=== PATIENT | male | born 1940 | race Caucasian/White ===

== ENCOUNTER → 2016-10-13 | Outpatient (CLI) | payer MEDICARE, OTHER ==
[2015-10-10 10:55] VITALS: BP 132/74
[~2016-10-13] MED LIST: ASPI-482 PO; GLYB5TAB3 PO; INSU100I13 SQ; METF-620 PO; METO50TA2 PO
--- NOTE | 2016-10-13 12:32 | RAD ---
CT of the chest without contrast, 10/13/2016: History: Follow-up lung cancer following radiation therapy. Noncontrast scans were obtained as requested and compared to a study from 04/06/2016. There is an elongated, streaky parenchymal opacity in the anterior aspect of the left upper lobe which has decreased in size since 04/06/2016. It is difficult to precisely measure due to its irregular margins. In the coronal plane it currently measures 8 mm in craniocaudad extent compared to a measurement of 15 mm on the previous study. Much of this process may represent post radiation change/scarring. There is a calcified granuloma in the left lower lobe. No new pulmonary mass or infiltrate is seen. There is no evidence of pleural fluid. There is moderate calcific plaquing of the thoracic aorta and coronary arteries. No mediastinal adenopathy is seen. Again noted is hepatic steatosis. There is a faint radiopacity in the region of the neck of the gallbladder suggesting a calculus. The gallbladder is contracted. There are moderate scattered degenerative changes in the spine. Mild loss of height of several midthoracic vertebral bodies is unchanged. IMPRESSION: 1. The left upper lobe parenchymal opacity has regressed since 04/06/2016, as described above. 2. No new chest abnormality is detected. 3. Coronary artery disease. 4. Hepatic steatosis. 5. Probable cholelithiasis. PQRS Compliance Statement: One or more of the following individualized dose reduction techniques were utilized for this examination: 1. Automated exposure control 2. Adjustment of the mA and/or kV according to patient size 3. Use of iterative reconstruction technique
== END | disposition home or self-care (01) ==
LOC: CT 08:59
PROVIDERS: ATTEND Radiology Radiation Oncology
DX: C34.90 Malignant neoplasm of unspecified part of unspecified bronchus or lung (principal); Z92.3 Personal history of irradiation; I25.10 Atherosclerotic heart disease of native coronary artery without angina pectoris; K76.0 Fatty (change of) liver, not elsewhere classified
CPT/HCPCS: 71250

== ENCOUNTER → 2017-04-11 | Outpatient (CLI) | payer MEDICARE, OTHER ==
[2015-10-10 10:55] VITALS: BP 132/74
--- NOTE | 2017-04-11 13:49 | RAD ---
Indication: 6 month follow-up for lung cancer. Postradiation. Technique: Axial images and coronal and sagittal reformatted images are provided. Most recent comparison is from October 13, 2016. One or more of the following individualized dose reduction techniques were utilized for this examination: 1. Automated exposure control 2. Adjustment of the mA and/or kV according to patient size 3. Use of iterative reconstruction technique Findings: Potential 3 mm nodule near the minor fissure in the right middle lobe is stable. No new or enlarging pulmonary nodule is identified. Calcified granulomas are noted on the left. Bandlike opacity in the left upper lobe appears similar to prior, there is no increasing fullness at this site. There is no pleural effusion. Central airways are patent. There is no definite hilar or mediastinal adenopathy on this noncontrast study. There is atheromatous disease in the thoracic aorta without aneurysm. Coronary artery calcifications are noted. There is fatty infiltration of the liver. There is cholelithiasis. There is no adrenal mass. There are degenerative changes in the spine. Impression: 1. Stable posttreatment changes in the left lung. No increasing masslike consolidation to suggest residual or recurrent tumor. 2. Pulmonary nodule on the right is stable. Finding is retrospectively stable compared to a PET CT from November 18, 2015. 3. Coronary artery calcifications. 4. Cholelithiasis. Continued surveillance of the presumed posttreatment change on the left and a tiny nodule (not considered incidental) on the right is recommended.
== END | disposition home or self-care (01) ==
LOC: CT 10:20
PROVIDERS: ATTEND Radiology Radiation Oncology
DX: I25.10 Atherosclerotic heart disease of native coronary artery without angina pectoris (principal); K80.20 Calculus of gallbladder without cholecystitis without obstruction; R91.1 Solitary pulmonary nodule
CPT/HCPCS: 71250

== ENCOUNTER → 2017-07-25 | Outpatient (CLI) | payer MEDICARE, OTHER | END | disposition home or self-care (01) | LOC: CT 12:30 | DX: C34.92 Malignant neoplasm of unspecified part of left bronchus or lung (principal); J84.10 Pulmonary fibrosis, unspecified; K76.0 Fatty (change of) liver, not elsewhere classified; K80.20 Calculus of gallbladder without cholecystitis without obstruction | CPT/HCPCS: 71250 ==

== ENCOUNTER → 2017-10-27 | Outpatient (CLI) | payer MEDICARE, OTHER | END | disposition home or self-care (01) | LOC: CT 09:35 | DX: K76.0 Fatty (change of) liver, not elsewhere classified (principal); K80.20 Calculus of gallbladder without cholecystitis without obstruction; M81.8 Other osteoporosis without current pathological fracture; I10 Essential (primary) hypertension; E78.00 Pure hypercholesterolemia, unspecified; Z85.118 Personal history of other malignant neoplasm of bronchus and lung | CPT/HCPCS: 71250 ==

== ENCOUNTER → 2018-05-02 | Outpatient (CLI) | payer MEDICARE, OTHER ==
[2015-10-10 10:55] VITALS: BP 132/74
[~2018-05-02] MED LIST changes: +GABA-585 PO; +INSU100C4 SQ; +INSU300I SQ; -METF-620 PO; +METF10007 PO; -METO50TA2 PO; +METO50TA6 PO
--- NOTE | 2018-05-02 13:01 | RAD ---
CT chest without contrast 05/02/2018 Clinical indications: Lung carcinoma status post treatment, follow-up. COMPARISON: CT chest 10/27/2017, 07/25/2017, 04/11/2017, CT chest 09/24/2015. TECHNIQUE: Multiple CT images of the chest were obtained without contrast. *One or more of the following individualized dose reduction techniques were utilized for this examination: 1. Automated exposure control. 2. Adjustment of the mA and/or kV according to patient size. 3. Use of iterative reconstruction technique. FINDINGS: Heart size is normal without significant pericardial effusion. Stable mild dilatation of the ascending thoracic aorta measuring 4.1 cm with mild scattered calcified plaque. Stable dilatation of the main pulmonary artery measuring 3.4 cm. Three-vessel coronary artery calcifications. No axillary, mediastinal or obvious hilar lymphadenopathy, though evaluation is limited in the absence of intravenous contrast. Stable linear fibrosis in the anterior left upper lobe. There is a calcified granuloma in the left lower lobe. No suspicious noncalcified pulmonary nodules. There is stable elevation of the right hemidiaphragm. There is stable mild chronic compression deformities at T3, T6, T7 and T9. Stable ununited anterior left rib fracture, likely post therapeutic. Limited images of the upper abdomen: Moderate hepatic steatosis. Cholelithiasis. Stable right renal sinus cyst or extrarenal pelvis. IMPRESSION: 1. Stable post therapeutic changes of the left upper lung without evidence of local recurrence or thoracic metastatic disease. 2. Cholelithiasis and moderate hepatic steatosis. Electronically signed by: Jermaine Williamson MD (05/02/2018 12:57 PM) [id number]
== END | disposition home or self-care (01) ==
LOC: CT 09:44
PROVIDERS: ATTEND Radiology Radiation Oncology
DX: S22.32XD Fracture of one rib, left side, subsequent encounter for fracture with routine healing (principal); I25.10 Atherosclerotic heart disease of native coronary artery without angina pectoris; J84.10 Pulmonary fibrosis, unspecified; K80.20 Calculus of gallbladder without cholecystitis without obstruction; K76.0 Fatty (change of) liver, not elsewhere classified; M43.8X4 Other specified deforming dorsopathies, thoracic region; J98.6 Disorders of diaphragm; I70.0 Atherosclerosis of aorta; Z85.118 Personal history of other malignant neoplasm of bronchus and lung; X58.XXXD Exposure to other specified factors, subsequent encounter
CPT/HCPCS: 71250

== ENCOUNTER 2018-07-10 09:06 | Emergency (ER) | payer MEDICARE, OTHER ==
[~2018-07-10] VITALS: Ht 175.3 cm; Wt 88.5 kg
--- NOTE | 2018-07-10 10:12 | PHYS DOC ---
Past Medical History Past Medical History: Diabetes-Type II, Hypertension Additional Past Medical Histor: BPH, Lung cancer Past Surgical History: Other Additional Past Surgical Histo: shoulder and leg Alcohol Use: Occasionally Drug Use: None Adult General Chief Complaint Chief Complaint: MECHANICAL FALL HPI HPI Patient is an 78-year-old male who presents with complaining of pain around his left tailbone after falling this morning due to slipping on ice. Patient denies any other injuries. Patient also complains of some intermittent wheezing that he experiences with exertion. He states that that symptom has been present for at least a year. He states that he has not followed up with his primary care doctor on this because he feels like if he does his primary care doctor we'll just send him to see another doctor. He denies any chest pain associated with this. He also denies any fever. He rates the pain in his tailbone had about a 6 out of 10. He states the pain is worsened with palpation and movement. Review of Systems Review of Systems Constitutional: Denies fever or chills [] Respiratory: Denies cough or shortness of breath. Complains of intermittent exertional wheezing. [] Cardiovascular: No additional information not addressed in HPI [] Musculoskeletal: Complains of lower back and tailbone pain [] All other systems were reviewed and found to be within normal limits, except as documented in this note. Current Medications Current Medications Current Medications Medications (Trade) Dose Ordered Sig/Dario Start Time Stop Time Status Last Admin Dose Admin Oxycodone/ Acetaminophen (Percocet 7.5/ 325) 1 tab 1X ONCE 07/10/18 10:45 07/10/18 10:46 DC Allergies Allergies Allergies Coded Allergies Type Severity Reaction Last Updated Verified No Known Drug Allergies 06/08/13 No Physical Exam Physical Exam Constitutional: Well developed, well nourished, no acute distress, non-toxic appearance. [] HENT: Normocephalic, atraumatic, bilateral external ears normal, oropharynx moist, no oral exudates, nose normal. [] Eyes: PERRLA, EOMI, conjunctiva normal, no discharge. [] Neck: Normal range of motion, no tenderness, supple, no stridor. [] Cardiovascular: Regular rate and rhythm[] Lungs & Thorax: Bilateral breath sounds clear to auscultation [] Abdomen: Bowel sounds normal, soft, no tenderness. [] Skin: Warm, dry, no erythema, no rash. [] Back: There is tenderness to palpation around the left body of sacrum near the SI joint. There is no spinous point tenderness throughout the thoracic and lumbar spine. [] Extremities: No tenderness, no cyanosis, no clubbing, ROM intact. [] Current Patient Data Vital Signs Vital Signs Date Time Temp Pulse Resp B/P (MAP) Pulse Ox O2 Delivery O2 Flow Rate FiO2 07/10/18 09:42 98.9 82 16 160/76 (104) 95 Room Air 98.9 EKG EKG [] Radiology/Procedures Radiology/Procedures [] Impressions: PROCEDURE: CHEST PA & LATERAL Examination: 2 views of the chest, frontal view of the pelvis, 2 views of the sacrum and coccyx HISTORY: History of fall COMPARISON: None available. FINDINGS: Low lung volumes accentuates heart size and pulmonary vascularity. Mild linear left midlung zone atelectasis. Moderate degenerative changes thoracic spine. The bilateral femoral heads within the acetabula. Moderate joint space loss identified in the bilateral hip joint likely degeneration. Anterolisthesis of L5 on S1 measuring 1.8 cm. Moderate intervertebral disc is identified in the lower lumbar spine. Osseous demineralization limits evaluation. IMPRESSION: 1. No acute cardiopulmonary findings. Minimal atelectasis left midlung zone. 2. Moderate degenerative changes bilateral hip joints. No acute osseous findings. 3. 1.8 cm anterolisthesis of L5 on S1. Electronically signed by: Karson Polanco MD (07/10/2018 10:29 AM) [place] [id number] Course & Med Decision Making Course & Med Decision Making Pertinent Labs and Imaging studies reviewed. (See chart for details) [] Dragon Disclaimer Dragon Disclaimer This electronic medical record was generated, in whole or in part, using a voice recognition dictation system. Departure Departure Impression: Primary Impression: Sacral contusion Disposition: 01 HOME, SELF-CARE Condition: STABLE Referrals: WILLIE ALARCON MD (PCP) Patient Instructions: Contusion Scripts Methocarbamol (ROBAXIN-750) 750 Mg Tablet 1 TAB PO TID PRN for MUSCLE SPASMS, #15 TAB Prov: MADELINE IRELAND Jr. DO 07/10/18 Hydrocodone/Apap 5-325 (NORCO 5-325 TABLET) 1 Each Tablet 1-2 EACH PO PRN Q6HRS PRN for PAIN, #15 as needed for pain Prov: MADELINE IRELAND Jr. DO 07/10/18 Problem Qualifiers Primary Impression: Sacral contusion Encounter type: initial encounter Qualified Codes: S30.0XXA - Contusion of lower back and pelvis, initial encounter MADELINE IRELAND Jr. DO Jul 10, 2018 10:12
[2018-07-10 10:30] VITALS: BP 143/66
--- NOTE | 2018-07-10 10:33 | RAD ---
Examination: 2 views of the chest, frontal view of the pelvis, 2 views of the sacrum and coccyx HISTORY: History of fall COMPARISON: None available. FINDINGS: Low lung volumes accentuates heart size and pulmonary vascularity. Mild linear left midlung zone atelectasis. Moderate degenerative changes thoracic spine. The bilateral femoral heads within the acetabula. Moderate joint space loss identified in the bilateral hip joint likely degeneration. Anterolisthesis of L5 on S1 measuring 1.8 cm. Moderate intervertebral disc is identified in the lower lumbar spine. Osseous demineralization limits evaluation. IMPRESSION: 1. No acute cardiopulmonary findings. Minimal atelectasis left midlung zone. 2. Moderate degenerative changes bilateral hip joints. No acute osseous findings. 3. 1.8 cm anterolisthesis of L5 on S1. Electronically signed by: Karson Polanco MD (07/10/2018 10:29 AM) [facility]
[2018-07-10] MEDS ORDERED: METH-38 PO (10:53)
[2018-07-10] MEDS ORDERED: HYDR-3164 PO (10:53)
[2018-07-10] MEDS: oxyCODONE/APAP 7.5/325 1 TAB TABLET PO ONE (10:54)
== END 2018-07-10 11:23 | disposition home or self-care (01) ==
LOC: ER 09:06
DX: S30.0XXA Contusion of lower back and pelvis, initial encounter (principal); I10 Essential (primary) hypertension; E11.9 Type 2 diabetes mellitus without complications; W00.2XXA Other fall from one level to another due to ice and snow, initial encounter; Y93.89 Activity, other specified; Y92.89 Other specified places as the place of occurrence of the external cause; Y99.8 Other external cause status
CPT/HCPCS: 71046; 72170; 72220; 99283

== ENCOUNTER → 2018-12-05 | Outpatient (CLI) | payer MEDICARE, OTHER ==
[~2018-12-05] MED LIST changes: +HYDR-3164 PO; +METH-38 PO
--- NOTE | 2018-12-05 11:28 | KCIC ---
MRI Lumbar Spine without contrast History: Chronic low back pain, lumbar radiculitis, bilateral lower extremity weakness and gait disturbance Technique: Multiplanar, multi sequential noncontrast MR imaging was performed of the lumbar spine. Comparison: None Findings: There is severe L1 compression deformity, some mild edema signified by STIR hyperintense signal and T1 hypointense signal at site of maximal height loss centrally and to a lesser degree anteriorly. There is osseous retropulsion of the mid to superior vertebral body level with mild indentation upon the ventral thecal sac. Vertebral body stature levels is maintained. There is grade 1 anterior spondylolisthesis L5-S1 about 9 mm, bilateral L5 spondylolysis. There is moderate to severe degenerative disc disease greater posteriorly at L5-S1, mild disc desiccation more superior levels. Conus terminates near L1. There are anterior and posterior annular tears at L2-3 and L3-4. There are fairly large T2 hyperintense foci of the bilateral kidneys more likely due to cysts. There is circumaortic left renal vein. T12-L1: At the intervertebral disc space level, spinal canal is adequate. Neural foramina are adequate. There is mild osseous retropulsion of the superior aspect of L1 slightly indenting the ventral thecal sac without significant spinal stenosis. L1-L2: Spinal canal is adequate. There is minimal buckling of the ligamentum flavum. There is mild narrowing of the left neural foramen by facet, [id number] narrowing on the right in part mild osseous retropulsion. L2-L3: There is negligible disc osteophyte complex and bulge. Spinal canal and neural foramina are adequate. There is minimal buckling of the ligamentum flavum. L3-L4: There is negligible bulge. There is minimal buckling of the ligamentum flavum. Spinal canal and neural foramina are adequate. L4-L5: Spinal canal and neural foramina are adequate. L5-S1: There is partial uncovering of the posterior aspect of the disc due to spondylolisthesis, also minimal disc osteophyte complex. Spinal canal is adequate. There is mild neural foramina compromise bilaterally. Impression: 1. There is severe L1 compression fracture, trace edema at site of maximal height loss and to a lesser degree anteriorly, probably subacute. There is osseous retropulsion of the mid to superior vertebral body without significant spinal stenosis. There is [id number] right and mild left L1-2 neural foramina compromise. 2. There is grade 1 anterior spondylolisthesis L5-S1 due to bilateral L5 spondylolysis. There is mild bilateral L5-S1 neural foramina compromise. 3. Not fully evaluated, T2 hyperintense foci of the bilateral kidneys are more likely due to cysts. Electronically signed by: Jose Yanez MD (12/05/2018 11:25 AM) [facility]
--- NOTE | 2018-12-05 11:33 | KCIC ---
Bilateral lower extremity arterial ultrasound History: Absent pedal pulses. Discoloration and edema of the feet. Findings: Multiple grayscale, color, and duplex spectral analysis sonographic images were acquired of the lower extremity arteries bilaterally. There are no previous similar exams. Biphasic waveforms bilaterally are seen throughout arterial vasculature detected to have flow on color Doppler imaging. Diffuse plaque identified involving the arterial vasculature bilaterally. Velocities in cm/sec: RIGHT Common femoral artery 79 Profunda femoris artery 70 Proximal SFA 72 Mid SFA 51.4 Distal SFA 40.7 Popliteal artery 31.5 Anterior tibial artery no flow identified. Collaterals are seen. Dorsalis pedis artery no flow identified. Posterior tibial artery 46.6 proximally but the mid to distal aspects are occluded. Peroneal artery 88 LEFT: Common femoral artery 88.7 Profunda femoris artery 58.5 Proximal SFA 69.4 Mid SFA 71.3 Distal SFA 76.5 Popliteal artery 29.2 Anterior tibial artery no flow identified Dorsalis pedis artery no flow identified Posterior tibial artery 57.8 proximally but 18.5 distally Peroneal artery 236 Impression: Absence of flow involving the anterior tibial artery and dorsalis pedis artery bilaterally of concern for occlusion. The right posterior tibial artery also does not have flow at the mid to distal aspect of concern for occlusion. High velocity of the left peroneal artery compatible with hemodynamically significant stenosis. Diminished flow in the left distal posterior tibial artery. Electronically signed by: Dani Garcia MD (12/05/2018 11:30 AM) [facility]
== END | disposition home or self-care (01) ==
LOC: KCIC US 09:35
PROVIDERS: ATTEND Physical Medicine & Rehabilitation
DX: M51.17 Intervertebral disc disorders with radiculopathy, lumbosacral region (principal); M43.17 Spondylolisthesis, lumbosacral region; M47.27 Other spondylosis with radiculopathy, lumbosacral region; M25.78 Osteophyte, vertebrae; M48.061 Spinal stenosis, lumbar region without neurogenic claudication; M43.8X6 Other specified deforming dorsopathies, lumbar region; I70.203 Unspecified atherosclerosis of native arteries of extremities, bilateral legs; G89.29 Other chronic pain
CPT/HCPCS: 72148; 93925

== ENCOUNTER 2018-12-21 08:27 | Outpatient (CLI) | payer MEDICARE, OTHER ==
[~2018-12-21] VITALS: Ht 175.3 cm; Wt 90.3 kg
[2018-12-21] VITALS (13 sets, daily range): BP systolic 97–173; BP diastolic 54–101
[2018-12-21] MEDS ORDERED: LIDOCAINE WITH 8.4% SOD BICARB 3 ML DISP.SYRIN. ONE ×2 (08:54→10:50)
[2018-12-21] MEDS ORDERED: IOHEXOL 240 MG/ML 50ML VIAL. ONE (08:54)
[2018-12-21] MEDS ORDERED: GLIM4TAB2 PO (09:00)
[2018-12-21] MEDS ORDERED: TAMS0.4C97 PO (09:00)
[2018-12-21] MEDS ORDERED: METF500T9 PO (09:00)
[2018-12-21 09:03] LABS: BASO # 0.1 x10^3/uL (0.0-0.2); BASO % 1 % (0-3); EOS # 0.1 x10^3/uL (0.0-0.7); EOS % 2 % (0-3); HEMATOCRIT 45.6 % (39.0-53.0); HEMOGLOBIN 15.6 g/dL (13.0-17.5); LYMPH # 1.5 x10^3/uL (1.0-4.8); LYMPH % 23 % (24-48); MEAN CORPUSCULAR HEMOGLOBIN 33 pg (25-35); MEAN CORPUSCULAR HGB CONC 34 g/dL (31-37); MEAN CORPUSCULAR VOLUME 97 fL (79-100); MONO # 0.6 x10^3/uL (0.0-1.1); MONO % 10 % (0-9); NEUT # 4.2 x10^3/uL (1.8-7.7); NEUT % 65 % (31-73); PLATELET COUNT 267 x10^3/uL (140-400); RED BLOOD COUNT 4.68 x10^6/uL (4.30-5.70); RED CELL DISTRIBUTION WIDTH 13.8 % (11.5-14.5); WHITE BLOOD COUNT 6.4 x10^3/uL (4.0-11.0)
[2018-12-21 09:19] LABS: PROTHROMBIN TIME PATIENT 12.8 SEC (11.7-14.0)
[2018-12-21] MEDS ORDERED: fentaNYL PF VIAL 100 MCG/2 ML VIAL ONE (09:55)
[2018-12-21] MEDS ORDERED: MIDAZOLAM HCL/PF 2 MG/2 ML VIAL. ONE (09:55)
[2018-12-21] MEDS ORDERED: MIDAZOLAM HCL/PF 2 MG/2 ML VIAL. IV ONE (10:45)
[2018-12-21] MEDS ORDERED: LIDOCAINE WITH 8.4% SOD BICARB 3 ML DISP.SYRIN. IJ ONE (10:45)
[2018-12-21] MEDS ORDERED: fentaNYL PF VIAL 100 MCG/2 ML VIAL IV ONE (10:45)
[2018-12-21] MEDS ORDERED: IOHEXOL 240 MG/ML 50ML VIAL. IJ ONE (10:45)
[2018-12-21] MEDS ORDERED: IV NORMAL SALINE 500ML BAG 250 ML IV ONE (13:00)
--- NOTE | 2018-12-21 14:47 | NUR ---
Discharge Note: ARNOL BARILLAS Discharge instructions and discharge home medications reviewed with Patient and a copy given. All questions have been answered and understanding verbalized. The following instructions and handouts were given: moderate sedation adult and vertebroplasty after care Discontinued lines and drains: Peripheral IV intact. Patient discharged to Home or Self Care withFamily Membervia Wheelchair Addendum: 12/21/18 at 1450 by JIM VANEAGS RN Patient was instructed to contact Dr. Mondragon's office for additional pain medications.
--- NOTE | 2018-12-22 10:21 | RAD ---
Fluoroscopically guided kyphoplasty Indication:L1 compression fracture Fluoro time: 14.8 minutes Dose area product: 6138.9 uGym2 G Moderate sedation: The patient was appropriately monitored by a qualified independent observer throughout the course of the moderate sedation. [id number] sedation time:47 Consent: The risks and benefits of the procedure were discussed with the patient. Informed consent was obtained. The patient was brought to the fluoroscopy suite and placed in the prone position. A timeout procedure was performed. Preprocedural antibiotics were administered. Procedure: The overlying skin was prepped and draped in the usual sterile fashion. All elements of maximal sterile barrier technique including the use of a cap, mask, sterile gown, sterile gloves, large sterile sheet, appropriate hand hygiene, and 2% chlorhexidine for cutaneous antisepsis (or acceptable alternative antiseptic per current guidelines) were followed for this procedure. Using a left transpedicular approach, and direct fluoroscopic guidance, a trocar needle was advanced to the posterior third of the targeted vertebral body. Attempts to advance a curved cement delivery needle into the appropriate contralateral vertebral body were unsuccessful due to sclerosis and vertebral morphology. Right transpedicular access was achieved in identical fashion. Contrast opacified polymethylmethacrylate was then very slowly and carefully introduced through a cement delivery cannula through both access needles, under strict fluoroscopic control. Only a small amount of cement could be instilled, given morphology. The needles were removed and manual pressure was held. No significant extravasation or complication was identified. Sterile dressing was applied. Patient tolerated the procedure well, without apparent complication. Impression: L1 vertebroplasty
== END 2018-12-21 14:35 | disposition home or self-care (01) ==
LOC: INTRAD 08:27
PROVIDERS: ATTEND Physical Medicine & Rehabilitation
DX: M48.56XA Collapsed vertebra, not elsewhere classified, lumbar region, initial encounter for fracture (principal); M54.5 Low back pain; Z79.01 Long term (current) use of anticoagulants; Z79.899 Other long term (current) drug therapy
CPT/HCPCS: 22514; 36415; 82962; 85025; 85610; 85730; 99152; 99153; C1713; C1725; J0696; J2250; J3010; J7040; 22511

== ENCOUNTER → 2019-06-05 | Outpatient (CLI) | payer MEDICARE, OTHER ==
[2018-12-21 14:25] VITALS: BP 154/101
[~2019-06-05] MED LIST changes: +GLIM4TAB8 PO; +IOHEXOL 180 MG/ML 10 ML VIAL. ONE; +METF500T11 PO; +TAMS0.4C97 PO; +methylPREDNISolone ACETATE 40 MG/ML VIAL. ONE; +methylPREDNISolone ACETATE 80 MG/ML VIAL. ONE
--- NOTE | 2019-06-05 14:06 | PAIN ---
DATE OF SERVICE: 06/05/2019 INITIAL CONSULTATION FOR PAIN CLINIC CHIEF COMPLAINT: Low back pain. HISTORY OF PRESENT ILLNESS: This is an 78-year-old male who presents with history of pain in the low back after falling on some ice on 07/07/2018. The patient reports he had significant pain in the mid low back at that time. He did have some x-rays done at that time showing a compression fracture at L1. He had a vertebroplasty performed after that, but with only minimal decrease in pain. The patient reports that since this past summer, the pain is becoming more noticeable in the mid upper back and the mid lower back, constant, throbbing, aching, sharp without any specific radiation. The patient has not done any current physical therapies or rehab with the back. He is doing some stretching on his own, he reports. The patient did have an MRI scan report with him dated 12/05/2018. Lumbar spine showing severe L1 compression fracture with trace edema at the site of the maximal height loss and a lesser degree anteriorly, probably subacute with osseous retropulsion of the mid to superior vertebral body without significant spinal stenosis with [id number] right and mild left L1-L2 neural foraminal compromise as well as a grade 1 anterior spondylolisthesis L5-S1 due to bilateral L5 spondylosis, mild bilateral L5-S1 neural foraminal compromise as well. The patient reports the pain disability rating from 0-10, 10 being the worst, is an 8 with family home responsibilities, recreation, social activity, occupation and sexual behavior, self-care and life support activities. The patient reports no loss of motor function in the lower extremities, significant pain interrupting his sleep at least twice a night, does not affect his bowel or bladder control, but does affect his ability to walk. The patient also has some dizziness and balance issues, he reports separate from the pain in the back. PAST MEDICAL HISTORY: Significant for hearing aids with hearing loss, diabetes insulin dependent, shortness of breath, hypertension, irregular heart rhythm, history of lung cancer in 2016, treated with chemotherapy, difficulty urinating, dizziness, low back pain. PREVIOUS SURGERIES: Include fracture of left wrist repair, left knee ACL repair. CURRENT MEDICATIONS: Include hydrocodone, tamsulosin, metformin, glimepiride, metoprolol, insulin, and gabapentin. ALLERGIES: The patient has no known drug allergies. FAMILY HISTORY: Significant for no major medical problems or conditions that he lists. SOCIAL HISTORY: The patient does not drink alcohol, does not smoke, does not use any illegal, illicit or recreational drugs. He is and lives locally in [place], [place]. The patient is accompanied by his daughter today who helps as a caregiver. REVIEW OF SYSTEMS: The patient's review of systems is positive for those items mentioned in history of present illness. All systems reviewed and otherwise negative. It is complete, full and well documented on the patient's chart. PHYSICAL EXAMINATION: VITAL SIGNS: The patient's blood pressure is 156/83, pulse rate is 63, respirations 18, temperature 98.5 degrees Fahrenheit, height 5 feet 9 inches, weight is 196 pounds. GENERAL: The patient is awake, alert, oriented, appropriate, very pleasant demeanor. HEENT: Shows normocephalic, atraumatic. Extraocular movements are intact and symmetrical. Oral cavity shows mucous membranes moist and pink. Dentition is intact. NECK: Shows anterior throat supple without palpable lymphadenopathy noted. Swallow reflex is symmetrical. CHEST: Shows normal on inspection. Breath sounds are clear bilaterally. HEART: Shows S1, S2 clear. No murmurs auscultated. ABDOMEN: Soft, nontender, nondistended. No palpable organomegaly is noted. No rebound or guarding demonstrated. BACK: The patient's back shows spine grossly in midline, slightly exaggerated thoracic kyphosis, some minor flattening of cervical lordotic curvature and lumbar lordotic curvature. Lumbar paraspinous muscle shows symmetrical on inspection, on palpation shows some gurv-ut-[id number] tenderness in the superior aspect of the lumbar paraspinous musculature bilaterally going diffusely, some moderate tenderness with palpation deeply over the spinous processes of the lower thoracic and upper lumbar distribution, but without specific radiation and only moderately painful. Lower lumbar paraspinous musculature shows no significant pain, no tenderness over the spinous processes, sacrum or sacroiliac regions. The patient shows good rotational motion of lumbar spine, both laterally greater than 10 degrees right and left as well as extension greater than 10 degrees, forward flexion 45 degrees without significant increase in pain. EXTREMITIES: The patient's lower extremities show deep tendon reflexes 1+ in the patellar and tendo-calcaneus tendons are equal. Motor exam is with approximately 3-4 on a scale of 5 with left dorsiflexion and extension and 5/5 on the right, quadriceps and hamstring flexion is 4/5 left, 5/5 on the right. The patient is able to stand, has difficulty trying to get up out of the chair without using arms, but is walking without any assistive devices. No canes or walkers with him today. The patient reports he does have a cane at home, but is not using it currently. He walks with a significant antalgic gait and favors the left lower extremity significantly with significant footdrop and slapping of the left foot with ambulation. The patient's skin shows warm and dry, good turgor. No edema. No sores or bruising throughout. IMPRESSION: 1. This is an 78-year-old male with approximate 1-year history of fall with compression fracture L1, status post vertebroplasty, still with significant low back pain. 2. Hypertension. 3. Diabetes. 4. History of lung cancer. PLAN: Options were discussed with the patient, the patient's daughter who accompanied him on this visit today including conservative medical managements, physical therapies and interventional techniques and they would like to pursue interventional techniques. We discussed a lumbar epidural steroid injection using description as well as anatomical models to describe the procedure. Risks were then discussed including, but not limited to bleeding, infection, possibility of epidural hematoma, subsequent neurological compromise, dural puncture headaches, spinal cord and/or nerve damage, side effects of steroid medication and poor results regarding pain control. The patient understands and wished to proceed. The patient will return to the clinic in approximately 2 weeks for followup. She was counseled as to return appointment, activity level and side effects to be aware of. DIAGNOSIS: Lumbar compression fracture with low back pain. PROCEDURE: Lumbar epidural steroid injection, translaminar approach at L1-L2 level using C-arm fluoroscopic guidance under sterile prep and drape using local anesthetic. MEDICATION INJECTED: A total of 120 mg of Depo-Medrol plus 10 mL of preservative-free normal saline and 2 mL of contrast. CONDITION AT DISCHARGE: Stable. The patient tolerated the procedure well, had no complications. JEN BUSTILLOS MD DR: BEVERLY/dustin JOB#: [id number] / [id number] WILLIE Mckeon MD
== END ==
LOC: PNCL 11:20
PROVIDERS: ATTEND Anesthesiology
DX: M54.5 Low back pain (principal); M48.56XA Collapsed vertebra, not elsewhere classified, lumbar region, initial encounter for fracture; I10 Essential (primary) hypertension; E11.9 Type 2 diabetes mellitus without complications; Z79.84 Long term (current) use of oral hypoglycemic drugs; Z85.118 Personal history of other malignant neoplasm of bronchus and lung
CPT/HCPCS: 62323; J1030; J1040; Q9965

== ENCOUNTER → 2019-06-08 | Outpatient (CLI) | payer MEDICARE, OTHER ==
[2018-12-21 14:25] VITALS: BP 154/101
[~2019-06-08] MED LIST changes: +GADOTERATE 7.5 MMOL/15ML VIAL. IVP ONE; -IOHEXOL 180 MG/ML 10 ML VIAL. ONE; -methylPREDNISolone ACETATE 40 MG/ML VIAL. ONE; -methylPREDNISolone ACETATE 80 MG/ML VIAL. ONE
--- NOTE | 2019-06-08 13:23 | KCIC ---
MRI Cervical Spine with and without contrast History: Cervical radiculopathy, previous lung cancer, neck pain, crepitus, loss of range of motion, shoulder pain Technique: Multiplanar, multi sequential pre and postcontrast MR imaging was performed of the cervical spine. Comparison: None Findings: There is motion degradation. Not included on the axial images, there is approximate 1.1 cm AP focus of abnormal T2 and STIR hyperintense signal near the base of the dens, also with associated likely underlying type II nondisplaced fracture signified by linear decreased T1 and T2 signal. There is some degree of associated mild enhancement although no bony expansion. Vertebral body stature is overall maintained. There is minimal grade 1 anterior spondylolisthesis at C3-C4, C6-7, C7-T1. There is fairly advanced degenerative disc disease at C6-7 and to lesser degree at C4-5 and C5-6. Cervical cord caliber is within normal limits without defined or expansile signal abnormality. There is no enhancement of the cervical cord. There is mild levoscoliosis centered upon the cervicothoracic junction. C2-C3: Spinal canal and neural foramina are are overall adequate. C3-C4: There is facet degenerative change change greater on the right. Spinal canal is adequate. There is negligible disc osteophyte complex. There is degree of left uncovertebral degenerative change. Neural foramina are poorly characterized due to motion, right neural foramen probably adequate and likely vfws-na-[id number] narrowing of the left neural foramen. C4-C5: There is buckling of the ligamentum flavum. There is disc osteophyte complex and approximate 2 to 3 mm AP bulge, central canal borderline about 10 mm. There is mild facet degenerative change, also right uncovertebral degenerative change. Neural foramina are poorly characterized due to motion, probable moderate to severe right and possible mild left neural foramina compromise. C5-C6: There is disc osteophyte complex and superimposed about 2 mm AP bulge. Central canal is adequate about 11 mm. There is likely mild uncovertebral degenerative change. Neural foramina are poorly characterized due to motion, likely wlwy-cf-[id number] left and at least mild right neural foramina compromise C6-C7: There is disc osteophyte complex and partially calcified, about 3 mm AP protrusion. Central canal is adequate about 13 mm. Neural foramina are adequate. C7-T1: Spinal canal and neural foramina are adequate. Impression: 1. There is abnormal edema and also apparently nondisplaced type II odontoid fracture, associated mild enhancement which could be due to underlying marrow replacing lesion although no bony expansion and enhancement could be reactive. 2. There is no significant cervical spinal stenosis. 3. Neural foramina are poorly characterized due to motion motion, suspected neural foramina compromise as stated greatest on the right at C4-C5, to a lesser degree left greater than right at C5-C6 and on the left at C3-4 and C4-5. 3. There is multilevel cervical degenerative disc disease greatest at C6-7 and to a somewhat lesser degree at C4-5 and C5-6, also spondylosis at these levels. Critical results were discussed with nurse Ordaz in the office of Dr. Coy at 06/08/2019 1:16 PM. Electronically signed by: Jose Yanez MD (06/08/2019 1:20 PM) [facility]
== END | disposition home or self-care (01) ==
LOC: KCIC MRI 11:22
PROVIDERS: ATTEND Neurological Surgery
DX: S12.112A Nondisplaced Type II dens fracture, initial encounter for closed fracture (principal); M50.121 Cervical disc disorder at C4-C5 level with radiculopathy; M47.22 Other spondylosis with radiculopathy, cervical region; M43.13 Spondylolisthesis, cervicothoracic region; X58.XXXA Exposure to other specified factors, initial encounter; Y93.89 Activity, other specified; Y92.89 Other specified places as the place of occurrence of the external cause; Y99.8 Other external cause status
CPT/HCPCS: 72156; 82565; A9575

== ENCOUNTER → 2019-06-19 | Outpatient (CLI) | payer MEDICARE, OTHER ==
[2018-12-21 14:25] VITALS: BP 154/101
[~2019-06-19] MED LIST changes: -GADOTERATE 7.5 MMOL/15ML VIAL. IVP ONE
--- NOTE | 2019-06-19 18:07 | RAD ---
Examination: CT CERVICAL SPINE WO CONTRAST History: C2 fracture Comparison/Correlation: 06/08/2019 MRI cervical spine without with contrast Findings: Axial images of cervical spine were obtained without contrast. Sagittal and coronal reformatted images were provided. Atlantoaxial joint degenerative remodeling is present. Cystic appearance of the base of the dens is noted. No cortical disruption identified. No soft tissue swelling in the prevertebral region at this level. Moderate C4-5 disc space narrowing. Moderate C5-6 disc space narrowing. C5 and C6-7 disc space narrowing. Bony encroachment bilaterally as noted the neural foramina at these levels greater on the right. Significant narrowing of the right C4-5, C5-6 and to lesser extent C6-7 neural foramina on the right noted. C6-7 disc osteophyte complex noted. Alignment is normal. Vertebral body heights are adequate. Impression: No displaced cervical spine fracture. Atlantoaxial joint degenerative remodeling. Multicystic appearance of the base of the odontoid process is present likely related to degenerative change. No cortical disruption or soft tissue edema to suggest acute fracture. Correlate with symptoms in this term follow-up. Alignment is normal. PQRS Compliance Statement: One or more of the following individualized dose reduction techniques were utilized for this examination: 1. Automated exposure control 2. Adjustment of the mA and/or kV according to patient size 3. Use of iterative reconstruction technique Electronically signed by: Dani Garcia MD (06/19/2019 6:03 PM) [facility]
== END | disposition home or self-care (01) ==
LOC: CT 14:01
PROVIDERS: ATTEND Neurological Surgery
DX: S12.101D Unspecified nondisplaced fracture of second cervical vertebra, subsequent encounter for fracture with routine healing (principal); X58.XXXD Exposure to other specified factors, subsequent encounter
CPT/HCPCS: 72125

== ENCOUNTER → 2019-07-16 | Outpatient (CLI) | payer MEDICARE, OTHER ==
[2018-12-21 14:25] VITALS: BP 154/101
[~2019-07-16] MED LIST changes: +IOHEXOL 180 MG/ML 10 ML VIAL. ONE; +methylPREDNISolone ACETATE 40 MG/ML VIAL. ONE; +methylPREDNISolone ACETATE 80 MG/ML VIAL. ONE
--- NOTE | 2019-07-16 23:22 | PAIN ---
DATE OF SERVICE: 07/16/2019 PROGRESS NOTE FOR PAIN CLINIC DIAGNOSES: Lumbar degenerative disk disease, lumbar compression fracture, and low back pain. HISTORY OF PRESENT ILLNESS: The patient is an 79-year-old male who returns for followup status post lumbar epidural steroid injection x 1. The patient reports only minimal decrease in pain in the back and the pain has moved to a lower area of the back in the low back bilaterally and some into the posterior gluteus bilaterally as well, but mostly in the back itself. The patient reports it is a 6 on a scale of 10 at average, least, and worst, and is a 6 on a scale of 10 today. The patient describes it as aching and dull, sometimes shooting, but mostly just dull and aching in the low back, worse with walking, standing, changing positions, better with sitting or lying down, does not awaken him from sleep at night. The patient reports no new motor or sensory deficits, no new bowel or bladder incontinence or other complaints. PHYSICAL EXAMINATION: VITAL SIGNS: The patient's blood pressure is 164/87, pulse is 71, respirations 18, temperature 98.6 degrees Fahrenheit, and weight is 192 pounds. GENERAL: The patient is awake, alert, oriented, appropriate, very pleasant demeanor. HEENT: Shows normocephalic, atraumatic. Extraocular movements are intact and symmetrical. Oral cavity: Mucous membranes moist and pink. Dentition is intact. NECK: Shows anterior throat supple without palpable lymphadenopathy noted. Swallow reflex symmetrical. CHEST: Shows normal on inspection. Breath sounds are clear bilaterally. HEART: Shows S1, S2 clear. No murmurs auscultated. ABDOMEN: Soft, nontender, nondistended. No palpable organomegaly is noted. No rebound or guarding demonstrated. BACK: Shows spine grossly in the midline. Normal-appearing thoracic kyphosis and lumbar lordotic curvature. Lumbar paraspinous muscle shows symmetrical on inspection, with palpation shows some moderate tenderness diffusely bilaterally going diffusely without significant radiation. The patient shows good rotation of motion without significant pain reported with palpation. Lumbar paraspinous muscle shows symmetrical on inspection, but with palpation shows some moderate tenderness inferiorly and superiorly as well throughout the right and left lumbar paraspinous musculature without radiation. EXTREMITIES: The patient's lower extremities show deep tendon reflexes 2+ in the patellar, 1+ tendo-calcaneus tendons. Motor exam is strong with approximately 3-4 on a scale of 5 with left loot, 4/5 quadriceps and hamstring flexion on the left. Options were discussed with the patient. The patient's old chart was reviewed as his current medication regimen updated. Current review of systems updated today as well. We will proceed with a second lumbar epidural steroid injection today with fluoroscopic guidance. Risks were again discussed including, but not limited to bleeding, infection, possibility of epidural hematoma, subsequent neurological compromise, dural puncture, headaches, spinal cord and/or nerve damage, side effects of steroid medication and poor results regarding pain control. The patient understands and wished to proceed. The patient will return to clinic in approximately 2 weeks for followup. He was counseled as to return appointment, activity level and side effects to be aware of. DIAGNOSIS: Lumbar degenerative disk disease with lumbar compression fracture. PROCEDURE: Lumbar epidural steroid injection, translaminar approach L5-S1 level using C-arm fluoroscopic guidance under sterile prep and drape using local anesthetic. MEDICATION INJECTED: A total of 120 mg Depo-Medrol plus 10 mL of preservative-free normal saline and 2 mL of contrast. CONDITION AT DISCHARGE: Stable. The patient tolerated the procedure well, had no complications. JEN BUSTILLOS MD DR: BEVERLY/dustin JOB#: [id number] / [id number]
== END | disposition home or self-care (01) ==
LOC: PNCL 14:04
PROVIDERS: ATTEND Anesthesiology
DX: M51.36 Other intervertebral disc degeneration, lumbar region (principal); S32.009A Unspecified fracture of unspecified lumbar vertebra, initial encounter for closed fracture; X58.XXXA Exposure to other specified factors, initial encounter; Y93.89 Activity, other specified; Y92.89 Other specified places as the place of occurrence of the external cause; Y99.8 Other external cause status; Z98.890 Other specified postprocedural states
CPT/HCPCS: 62323; J1030; J1040; Q9965

== ENCOUNTER 2020-06-01 16:03 | Inpatient (IN) | payer MEDICARE, OTHER ==
[~2020-06-01] VITALS: Ht 175.3 cm; Wt 83.4 kg
[~2020-06-01 16:03] MED LIST changes: +ASPI-886 PO; +ATOR40TA59 PO; +GABA600T7 PO; +INSU100I17 SQ; -IOHEXOL 180 MG/ML 10 ML VIAL. ONE; +ISOS30TA68 PO; +METF-658 PO; -METF500T11 PO; +PANT40TA77 PO; -methylPREDNISolone ACETATE 40 MG/ML VIAL. ONE; -methylPREDNISolone ACETATE 80 MG/ML VIAL. ONE
[2020-06-01 16:19] LABS: BASO # 0.1 x10^3/uL (0.0-0.2); BASO % 1 % (0-3); EOS # 0.2 x10^3/uL (0.0-0.7); EOS % 2 % (0-3); HEMATOCRIT 40.5 % (39.0-53.0); HEMOGLOBIN 13.5 g/dL (13.0-17.5); LYMPH # 2.1 x10^3/uL (1.0-4.8); LYMPH % 23 % (24-48); MEAN CORPUSCULAR HEMOGLOBIN 32 pg (25-35); MEAN CORPUSCULAR HGB CONC 33 g/dL (31-37); MEAN CORPUSCULAR VOLUME 96 fL (79-100); MONO # 0.9 x10^3/uL (0.0-1.1); MONO % 10 % (0-9); NEUT % 65 % (31-73); PLATELET COUNT 285 x10^3/uL (140-400); RED BLOOD COUNT 4.21 x10^6/uL (4.30-5.70); RED CELL DISTRIBUTION WIDTH 16.4 % (11.5-14.5); WHITE BLOOD COUNT 9.2 x10^3/uL (4.0-11.0)
--- NOTE | 2020-06-01 16:25 | PHYS DOC ---
Past Medical History Past Medical History: CAD, Diabetes-Type II, Hypertension Additional Past Medical Histor: BPH, Lung cancer with radiation. Past Surgical History: Other Additional Past Surgical Histo: shoulder and leg Smoking Status: Never Smoker Alcohol Use: Occasionally Drug Use: None General Adult EDM: Chief Complaint: CHEST PAIN-CARDIAC NATURE HPI: HPI: Patient is a 79 year old male who was brought here from home due to chest pain. Patient said he had some episode of chest pressure today so he took 2 doses of nitroglycerin, he became dizzy and passed out. EMS was called to take him here for evaluation.. EMS that he was pale and diaphoresis, THEY PUT SOME NITROGLYCERIN ON HIS CHEST AND IT DROPPED HIS BLOOD PRESSURE SO THEY WIPED IT OFF. PATIENT DENIED ANY CHEST PAIN AT THIS TIME. PATIENT SAID HE WAS SEEN AT LAST WEEK, HAD 3 STENTS PLACED, DISCHARGED HOME YESTERDAY. Patient was admitted here on May 16, 2020 for NSTEMI. He was taken to the [facility], found three-vessel disease. He was scheduled for bypass surgery at [facility]. He was discharged home on 05/18/2020. Patient started having chest pain again on 05/19/2020, his daughter took her to the ER at [facility] on the night of 05/19/2020. Somehow he was transferred to [facility], the next day they took him to the [facility], placed 1 stent. 2 days later they took him to the [facility] again and placed 2 more stents. Patient was discharged home on [place]. He was doing okay until today he started having pressure and restless so he took the nitroglyerin, tanked his blood pressure, made him passed out. EMS GAVE HIM 324 MG ASPIRIN ON ROUTE. HE DENIED ANY CHEST PAIN UPON ARRIVAL HERE. Review of Systems: Review of Systems: Constitutional: Denies fever or chills. [] Eyes: Denies change in visual acuity. [] HENT: Denies nasal congestion or sore throat. [] Respiratory: Denies cough or shortness of breath. [] Cardiovascular: POSITIVE FOR chest pain, NO edema. [] GI: Denies abdominal pain, nausea, vomiting, bloody stools or diarrhea. [] : Denies dysuria. [] Musculoskeletal: Denies back pain or joint pain. [] Integument: Denies rash. [] Neurologic: Denies headache, focal weakness or sensory changes. [] Endocrine: Denies polyuria or polydipsia. [] Lymphatic: Denies swollen glands. [] Psychiatric: Denies depression or anxiety. [] Heart Score: HEART Score for Chest Pain: HEART Score for Chest Pain Response (Comments) Value History Moderately Suspicious 1 ECG Nonspecific Repolarizatio 1 Age > 65 2 Risk Factors >3 Risk Factors or Hx CAD 2 Troponin >1-<3x Normal Limit 1 Total 7 Risk Factors: Risk Factors: DM, Current or recent (<one month) smoker, HTN, HLP, family history of CAD, obesity. Risk Scores: Score 0 - 3: 2.5% MACE over next 6 weeks - Discharge Home Score 4 - 6: 20.3% MACE over next 6 weeks - Admit for Clinical Observation Score 7 - 10: 72.7% MACE over next 6 weeks - Early Invasive Strategies Allergies: Allergies: Allergies Coded Allergies Type Severity Reaction Last Updated Verified No Known Drug Allergies 06/08/13 No Physical Exam: PE: Constitutional: Well developed, well nourished, no acute distress, non-toxic appearance. [] HENT: Normocephalic, atraumatic, bilateral external ears normal, oropharynx moist, no oral exudates, nose normal. [] Eyes: PERRLA, EOMI, conjunctiva normal, no discharge. [] Neck: Normal range of motion, no tenderness, supple, no stridor. [] Cardiovascular:Heart rate regular rhythm, no murmur [] Lungs & Thorax: Bilateral breath sounds clear to auscultation [] Abdomen: Bowel sounds normal, soft, no tenderness, no masses, no pulsatile masses. [] Skin: Warm, dry, no erythema, no rash. [] Back: No tenderness, no CVA tenderness. [] Extremities: No tenderness, no cyanosis, no clubbing, ROM intact, no edema. [] Neurologic: Alert and oriented X 3, normal motor function, normal sensory function, no focal deficits noted. [] Psychologic: Affect normal, judgement normal, mood normal. [] Current Patient Data: Labs: Laboratory Tests Test 06/01/20 16:12 White Blood Count 9.2 x10^3/uL Red Blood Count 4.21 x10^6/uL Hemoglobin 13.5 g/dL Hematocrit 40.5 % Mean Corpuscular Volume 96 fL Mean Corpuscular Hemoglobin 32 pg Mean Corpuscular Hemoglobin Concent 33 g/dL Red Cell Distribution Width 16.4 % Platelet Count 285 x10^3/uL Neutrophils (%) (Auto) 65 % Lymphocytes (%) (Auto) 23 % Monocytes (%) (Auto) 10 % Eosinophils (%) (Auto) 2 % Basophils (%) (Auto) 1 % Neutrophils # (Auto) 6.0 x10^3/uL Lymphocytes # (Auto) 2.1 x10^3/uL Monocytes # (Auto) 0.9 x10^3/uL Eosinophils # (Auto) 0.2 x10^3/uL Basophils # (Auto) 0.1 x10^3/uL Sodium Level 140 mmol/L Potassium Level 3.6 mmol/L Chloride Level 101 mmol/L Carbon Dioxide Level 25 mmol/L Anion Gap 14 Blood Urea Nitrogen 33 mg/dL Creatinine 1.7 mg/dL Estimated GFR (Cockcroft-Gault) 38.9 BUN/Creatinine Ratio 19 Glucose Level 121 mg/dL Calcium Level 9.9 mg/dL Magnesium Level 2.7 mg/dL Total Bilirubin 0.7 mg/dL Aspartate Amino Transf (AST/SGOT) 31 U/L Alanine Aminotransferase (ALT/SGPT) 40 U/L Alkaline Phosphatase 70 U/L Troponin I Quantitative 0.295 ng/mL RX-[id number]-Type Natriuretic Peptide 6832 pg/mL Total Protein 7.6 g/dL Albumin 4.1 g/dL Albumin/Globulin Ratio 1.2 Current Medications Medications (Trade) Dose Ordered Sig/Dario Route PRN Reason Start Time Stop Time Status Last Admin Dose Admin Lorazepam (Ativan Inj) 0.5 mg 1X ONCE IVP 06/01/20 17:00 06/01/20 17:01 DC 06/01/20 17:02 Sodium Chloride 500 ml @ 500 mls/hr 1X ONCE IV 06/01/20 17:00 06/01/20 17:59 06/01/20 17:02 Heparin Sodium/ Dextrose 250 ml @ 0 mls/hr CONT PRN IV PER PROTOCOL 06/01/20 17:00 06/01/20 17:20 Heparin Sodium (Porcine) (Heparin Sodium) 2,050 unit PRN Q6HRS PRN IV FOR UFH LEVEL LESS THAN 0.2 06/01/20 17:00 Heparin Sodium (Porcine) (Heparin Sodium) 4,000 unit 1X ONCE IV 06/01/20 17:30 06/01/20 17:31 DC 06/01/20 17:29 Ondansetron HCl (Zofran) 4 mg PRN Q8HRS PRN IV NAUSEA/VOMITING 06/01/20 17:30 06/02/20 17:29 EKG: EKG: EKG WAS DONE AT 1604, HEART RATE OF 99 BPM, ST SEGMENT ELEVATION IN V2, ST SEGMENT DEPRESSION IN V5, V6 Radiology/Procedures: Radiology/Procedures: [][facility] [address] [place] [address] IMAGING REPORT Signed PATIENT: ARNOL ABRILLAS ACCOUNT: [id number] : 1940 LOCATION: ER AGE: 79 SEX: M EXAM STATUS: PRE ER ORD. PHYSICIAN: SENG WYATT DO REASON: chest pain PROCEDURE: PORTABLE CHEST 1V EXAM: Chest, single view. HISTORY: Chest pain. COMPARISON: 05/16/2020 FINDINGS: A frontal view of the chest is obtained. There is no infiltrate, pleural effusion or pneumothorax. There is stable left left mid thorax linear atelectasis or scarring. There is stable elevation of the right hemidiaphragm. The heart is stable in size. IMPRESSION: Stable suspected linear atelectasis or scarring within the left mid thorax. Electronically signed by: Olivia Justin MD (06/01/2020 4:45 PM) [facility] DICTATED and SIGNED BY: OLIVIA JUSTIN MD DATE: 06/01/20 [id number] 0 Course & Med Decision Making: Course & Med Decision Making Pertinent Labs and Imaging studies reviewed. (See chart for details) Patient is a 79-year-old male who was brought here by EMS from home due to chest pain. Patient troponin elevated to 0.3. He was chest pain-free, consulted chief operator on-call Dr. Recio who recommended to admit the patient, but patient on heparin protocol, will see the patient tomorrow. Dragon Disclaimer: Dragon Disclaimer: This electronic medical record was generated, in whole or in part, using a voice recognition dictation system. Departure Departure Impression: Primary Impression: NSTEMI (non-ST elevated myocardial infarction) Disposition: 09 ADMITTED INPT THIS HOSP Admitting Physician: PELON (DR. RUBY) Condition: STABLE Referrals: WILLIE ALARCON MD (PCP) SENG WYATT DO Jun 01, 2020 16:25
[2020-06-01 16:29] LABS: CALCIUM 9.9 mg/dL (8.5-10.1); CREATININE 1.7 mg/dL (0.7-1.3); GFR 38.9; POTASSIUM 3.6 mmol/L (3.5-5.1)
[2020-06-01 16:35] LABS: ALBUMIN 4.1 g/dL (3.4-5.0); ALBUMIN/GLOBULIN RATIO 1.2 (1.0-1.7); MAGNESIUM 2.7 mg/dL (1.8-2.4); TOTAL BILIRUBIN 0.7 mg/dL (0.2-1.0); TOTAL PROTEIN 7.6 g/dL (6.4-8.2)
--- NOTE | 2020-06-01 16:47 | RAD ---
EXAM: Chest, single view. HISTORY: Chest pain. COMPARISON: 05/16/2020 FINDINGS: A frontal view of the chest is obtained. There is no infiltrate, pleural effusion or pneumo thorax. There is stable left left mid thorax linear atelectasis or scarring. There is stable elevatio n of the right hemidiaphragm. The heart is stable in size. IMPRESSION: Stable suspected linear atelectasis or scarring within the left mid thorax. Electronically signed by: Olivia Eduardo MD (06/01/2020 4:45 PM) [facility]
[2020-06-01] MEDS ORDERED: IV NORMAL SALINE 500ML BAG 500 ML IV ONE (17:00)
[2020-06-01] MEDS ORDERED: HEPARIN 25,000UTS/250ML PREMIX 250 ML IV PRN (17:00)
[2020-06-01] MEDS ORDERED: HEPARIN for IV BOLUS 10,000 UNIT/10 ML VIAL. IV PRN (17:00)
[2020-06-01] MEDS ORDERED: HEPARIN for IV BOLUS 10,000 UNIT/10 ML VIAL. IV ONE (17:30)
[2020-06-01] MEDS ORDERED: ONDANSETRON PF 4 MG/2 ML VIAL. IV PRN (17:30)
[2020-06-01 18:03] LABS: PROTHROMBIN TIME PATIENT 13.3 SEC (11.7-14.0)
[2020-06-01] MEDS: IV NORMAL SALINE 1000ML BAG 1,000 ML IV SCH (21:58)
[2020-06-01 22:00] VITALS: BP 127/69
[2020-06-02 03:41] VITALS: BP 110/60
[2020-06-02 07:00] VITALS: BP 116/66
--- NOTE | 2020-06-02 07:01 | PDOC1 ---
History and Physical Date of Admission Date of Admission DATE: 06/02/20 TIME: 06:49 Identification/Chief Complaint Chief Complaint Chest pain Source Source: Chart review, Patient History of Present Illness History of Present Illness Patient is 79-year-old male with past medical history recent NSTEMI with stents, presents to ER with complaint of chest pressure yesterday. He took 2 nitroglycerin yesterday at home, which caused him to become dizzy with some associated diaphoresis. Upon EMS arrival nitroglycerin paste was placed on his chest which caused his blood pressure to drop, so this was wiped off. He was given aspirin 324 mg in route. Upon arrival to the ED patient denied any complaints of chest pain. He was recently admitted here on May 16, 2020 for NSTEMI and found to have three-vessel disease. He was scheduled for CABG at [facility] but had reservations about revascularization and ultimately left AMA. He started having chest pain again on 05/19/2020 and was taken to [facility]. He was transferred to [facility] and had 3 stents placed. Past Medical History Cardiovascular: HTN Pulmonary: Other CENTRAL NERVOUS SYSTEM: Other GI: Constipation Heme/Onc: No pertinent hx, Cancer Hepatobiliary: No pertinent hx Psych: No pertinent hx Musculoskeletal: Osteoarthritis Rheumatologic: No pertinent hx Infectious disease: No pertinent hx Renal/: No pertinent hx Endocrine: Diabetes Past Surgical History Past Surgical History: Other Family History Family History: Coronary Artery Disease Social History Smoke: No ALCOHOL: occassional Drugs: None Current Problem List Problem List Problems Medical Problems: (1) NSTEMI (non-ST elevated myocardial infarction) Status: Acute Current Medications Current Medications Current Medications Lorazepam (Ativan Inj) 0.5 mg 1X ONCE IVP Last administered on 06/01/20at 17:02; Start 06/01/20 at 17:00; Stop 06/01/20 at 17:01; Status DC Sodium Chloride 500 ml @ 500 mls/hr 1X ONCE IV Last administered on 06/01/20at 17:02; Start 06/01/20 at 17:00; Stop 06/01/20 at 17:59; Status DC Heparin Sodium/ Dextrose 250 ml @ 0 mls/hr CONT PRN IV PER PROTOCOL Last administered on 06/01/20at 17:20; Start 06/01/20 at 17:00 Heparin Sodium (Porcine) (Heparin Sodium) 2,050 unit PRN Q6HRS PRN IV FOR UFH LEVEL LESS THAN 0.2; Start 06/01/20 at 17:00 Heparin Sodium (Porcine) (Heparin Sodium) 4,000 unit 1X ONCE IV Last administered on 06/01/20at 17:29; Start 06/01/20 at 17:30; Stop 06/01/20 at 17:31; Status DC Ondansetron HCl (Zofran) 4 mg PRN Q8HRS PRN IV NAUSEA/VOMITING; Start 06/01/20 at 17:30; Stop 06/02/20 at 17:29 Sodium Chloride 1,000 ml @ 100 mls/hr Q10H IV Last administered on 06/01/20at 21:58; Start 06/01/20 at 22:00 Lorazepam (Ativan Inj) 2 mg PRN Q4HRS PRN IVP SEVERE ANXIETY / AGITATION; Start 06/02/20 at 00:15 Lorazepam (Ativan Inj) 1 mg PRN Q4HRS PRN IVP MODERATE ANXIETY / AGITATION Last administered on 06/02/20at 00:28; Start 06/02/20 at 00:15 Active Scripts Active Isosorbide Mononitrate Er (Isosorbide Mononitrate) 30 Mg Tab.er.24h 30 Mg PO DAILY 30 Days Pantoprazole Sodium (Pantoprazole Sodium) 40 Mg Tablet. 40 Mg PO DAILYAC 30 Days Aspirin Ec (Aspirin) 81 Mg Tablet.dr 81 Mg PO DAILYWBKFT 30 Days Atorvastatin Calcium 40 Mg Tablet 40 Mg PO QHS 30 Days Reported Novolog Flexpen (Insulin Aspart) 100 Unit/1 Ml Insuln.pen 14 Unit SQ BIDPCLD Novolog Flexpen (Insulin Aspart) 100 Unit/1 Ml Insuln.pen 12 Unit SQ DAILYWBKFT Gabapentin 600 Mg Tablet 300 Mg PO BID Toujeo Solostar (Insulin Glargine,Hum.rec.anlog) 300 Unit/1 Ml Insuln.pen 80 Unit SQ BID Metformin Hcl Er (Metformin Hcl) 500 Mg Tab.er.24h 500 Mg PO BIDWMEALS Glimepiride 4 Mg Tablet 2 Tab PO DAILY Flomax (Tamsulosin Hcl) 0.4 Mg Cap.er.24h 1 Cap PO DAILY Metoprolol Tartrate 50 Mg Tablet 50 Mg PO BID Allergies Allergies: Coded Allergies: No Known Drug Allergies (Unverified , 06/08/13) ROS Review of System GENERAL: Diaphoresis. No history of weight change, weakness or fevers. SKIN: No bruising, hair changes or rashes. EYES: No blurred, double or loss of vision. NOSE AND THROAT: No history of nosebleeds, hoarseness or sore throat. HEART: Chest pain. denies palpitations. LUNGS: Denies cough, hemoptysis, wheezing or shortness of breath. GASTROINTESTINAL: Denies nausea, vomiting, abdominal pain. GENITOURINARY: Denies dysuria, frequency, urgency, hematuria. NEUROLOGIC: Dizziness. Denies history of numbness, tingling, tremor or weakness. PSYCHIATRIC: Denies anxiety, denies depression. ENDOCRINE: No history of heat or cold intolerance, polyuria or polydipsia. EXTREMITIES: Denies muscle weakness, joint pain, pain on walking or stiffness. Physical Exam Physical Exam General: Alert, Oriented X3, Cooperative, No acute distress HEENT: PERRLA, EOMI Lungs: Clear to auscultation, Normal air movement Heart: RRR, no murmurs Cardiovascular: S1, S2 Abdomen: Normal bowel sounds, Soft, No tenderness Extremities: No clubbing, No cyanosis Skin: No rashes, No significant lesion Neuro: Normal speech, Normal tone, Sensation intact Psych/Mental Status: Mental status NL, Mood NL Vitals Vitals Vital Signs Date Time Temp Pulse Resp B/P (MAP) Pulse Ox O2 Delivery O2 Flow Rate FiO2 06/02/20 03:41 98.2 77 18 110/60 (77) 97 Room Air 98.2 06/01/20 21:30 2.0 Labs Labs Laboratory Tests Test 06/01/20 16:12 06/01/20 23:40 06/02/20 01:00 White Blood Count 9.2 x10^3/uL (4.0-11.0) Red Blood Count 4.21 x10^6/uL (4.30-5.70) Hemoglobin 13.5 g/dL (13.0-17.5) Hematocrit 40.5 % (39.0-53.0) Mean Corpuscular Volume 96 fL (79-100) Mean Corpuscular Hemoglobin 32 pg (25-35) Mean Corpuscular Hemoglobin Concent 33 g/dL (31-37) Red Cell Distribution Width 16.4 % (11.5-14.5) Platelet Count 285 x10^3/uL (140-400) Neutrophils (%) (Auto) 65 % (31-73) Lymphocytes (%) (Auto) 23 % (24-48) Monocytes (%) (Auto) 10 % (0-9) Eosinophils (%) (Auto) 2 % (0-3) Basophils (%) (Auto) 1 % (0-3) Neutrophils # (Auto) 6.0 x10^3/uL (1.8-7.7) Lymphocytes # (Auto) 2.1 x10^3/uL (1.0-4.8) Monocytes # (Auto) 0.9 x10^3/uL (0.0-1.1) Eosinophils # (Auto) 0.2 x10^3/uL (0.0-0.7) Basophils # (Auto) 0.1 x10^3/uL (0.0-0.2) Prothrombin Time 13.3 SEC (11.7-14.0) Prothromb Time International Ratio 1.1 (0.8-1.1) Activated Partial Thromboplast Time 24 SEC (24-38) Sodium Level 140 mmol/L (136-145) Potassium Level 3.6 mmol/L (3.5-5.1) Chloride Level 101 mmol/L (98-107) Carbon Dioxide Level 25 mmol/L (21-32) Anion Gap 14 (6-14) Blood Urea Nitrogen 33 mg/dL (8-26) Creatinine 1.7 mg/dL (0.7-1.3) Estimated GFR (Cockcroft-Gault) 38.9 BUN/Creatinine Ratio 19 (6-20) Glucose Level 121 mg/dL (70-99) Calcium Level 9.9 mg/dL (8.5-10.1) Magnesium Level 2.7 mg/dL (1.8-2.4) Total Bilirubin 0.7 mg/dL (0.2-1.0) Aspartate Amino Transf (AST/SGOT) 31 U/L (15-37) Alanine Aminotransferase (ALT/SGPT) 40 U/L (16-63) Alkaline Phosphatase 70 U/L (46-116) Troponin I Quantitative 0.295 ng/mL (0.000-0.055) 0.296 ng/mL (0.000-0.055) UQ-Hmu-X-Type Natriuretic Peptide 6832 pg/mL (0-449) Total Protein 7.6 g/dL (6.4-8.2) Albumin 4.1 g/dL (3.4-5.0) Albumin/Globulin Ratio 1.2 (1.0-1.7) Heparin Anti-Xa Act, Unfractionated 0.78 IU/mL (0.30-0.70) Laboratory Tests Test 06/01/20 16:12 06/01/20 23:40 06/02/20 01:00 White Blood Count 9.2 x10^3/uL (4.0-11.0) Red Blood Count 4.21 x10^6/uL (4.30-5.70) Hemoglobin 13.5 g/dL (13.0-17.5) Hematocrit 40.5 % (39.0-53.0) Mean Corpuscular Volume 96 fL (79-100) Mean Corpuscular Hemoglobin 32 pg (25-35) Mean Corpuscular Hemoglobin Concent 33 g/dL (31-37) Red Cell Distribution Width 16.4 % (11.5-14.5) Platelet Count 285 x10^3/uL (140-400) Neutrophils (%) (Auto) 65 % (31-73) Lymphocytes (%) (Auto) 23 % (24-48) Monocytes (%) (Auto) 10 % (0-9) Eosinophils (%) (Auto) 2 % (0-3) Basophils (%) (Auto) 1 % (0-3) Neutrophils # (Auto) 6.0 x10^3/uL (1.8-7.7) Lymphocytes # (Auto) 2.1 x10^3/uL (1.0-4.8) Monocytes # (Auto) 0.9 x10^3/uL (0.0-1.1) Eosinophils # (Auto) 0.2 x10^3/uL (0.0-0.7) Basophils # (Auto) 0.1 x10^3/uL (0.0-0.2) Prothrombin Time 13.3 SEC (11.7-14.0) Prothromb Time International Ratio 1.1 (0.8-1.1) Activated Partial Thromboplast Time 24 SEC (24-38) Sodium Level 140 mmol/L (136-145) Potassium Level 3.6 mmol/L (3.5-5.1) Chloride Level 101 mmol/L (98-107) Carbon Dioxide Level 25 mmol/L (21-32) Anion Gap 14 (6-14) Blood Urea Nitrogen 33 mg/dL (8-26) Creatinine 1.7 mg/dL (0.7-1.3) Estimated GFR (Cockcroft-Gault) 38.9 BUN/Creatinine Ratio 19 (6-20) Glucose Level 121 mg/dL (70-99) Calcium Level 9.9 mg/dL (8.5-10.1) Magnesium Level 2.7 mg/dL (1.8-2.4) Total Bilirubin 0.7 mg/dL (0.2-1.0) Aspartate Amino Transf (AST/SGOT) 31 U/L (15-37) Alanine Aminotransferase (ALT/SGPT) 40 U/L (16-63) Alkaline Phosphatase 70 U/L (46-116) Troponin I Quantitative 0.295 ng/mL (0.000-0.055) 0.296 ng/mL (0.000-0.055) WB-Djq-J-Type Natriuretic Peptide 6832 pg/mL (0-449) Total Protein 7.6 g/dL (6.4-8.2) Albumin 4.1 g/dL (3.4-5.0) Albumin/Globulin Ratio 1.2 (1.0-1.7) Heparin Anti-Xa Act, Unfractionated 0.78 IU/mL (0.30-0.70) Images Images EXAM: Chest, single view. HISTORY: Chest pain. COMPARISON: 05/16/2020 FINDINGS: A frontal view of the chest is obtained. There is no infiltrate, pleural effusion or pneumothorax. There is stable left left mid thorax linear atelectasis or scarring. There is stable elevation of the right hemidiaphragm. The heart is stable in size. IMPRESSION: Stable suspected linear atelectasis or scarring within the left mid thorax. VTE Prophylaxis Ordered VTE Prophylaxis Devices: No VTE Pharmacological Prophylaxi: Yes Assessment/Plan Assessment/Plan Unstable angina Elevated troponins Dehydration PEARL Vasomotor nephropathy Plan: Consultations placed to cardiology Troponins elevated but stable; continue heparin protocol Baseline creatinine appears to be around 1.3; will provide IV hydration Morphine as needed Recent echocardiogram 05/16/2020 with ejection fraction 30-35%, elevated pulmonary artery pressure, mildly dilated ascending aorta FEN - Cardiac diet PPX - Heparin FULL CODE Dispo - inpatient for above Justifications for Admission Other Justification CHINMAY GARDNER MD Jun 02, 2020 07:01
[2020-06-02] MEDS ORDERED: MORPHINE SULFATE 2 MG/ML VIAL. IV PRN (07:30)
[2020-06-02] MEDS ORDERED: ACETAMINOPHEN 325 MG TABLET. PO PRN (07:30)
[2020-06-02] MEDS ORDERED: MAG HYDROX/ALUMINUM HYD/SIMETH 30 ML ORAL.SUSP PO PRN (07:30)
[2020-06-02] MEDS ORDERED: MAGNESIUM HYDROXIDE 2,400 MG/30 ML ORAL.SUSP. PO PRN (07:30)
[2020-06-02] MEDS ORDERED: MORPHINE SULFATE 4 MG/ML VIAL. IV PRN (07:30)
[2020-06-02] MEDS ORDERED: BISACODYL 10 MG SUPP.RECT. PR PRN (07:30)
[2020-06-02] MEDS ORDERED: CALCIUM CARBONATE 500 MG TAB.CHEW PO PRN (07:30)
[2020-06-02] MEDS ORDERED: ANTI-COAG MONITOR BY PHARMACY. MC PRN (08:45)
--- NOTE | 2020-06-02 10:12 | EKG ---
[facility] [address] [place] [address] Test Date: 2020-06-01 Test Time: 16:43:35 Pat Name: ARNOL BARILLAS Department: Room: 262 1 Gender: M Sterile Process Coordinator: : 1940 Requested By: SENG WYATT Order Number: [id number] Reading MD: José Almanzar Measurements Intervals [place] Rate: 81 P: 0 NH: 104 QRS: -5 QRSD: 94 T: 169 QT: 418 QTc: 492 Interpretive Statements SINUS RHYTHM VENTRICULAR PREMATURE COMPLEX(ES) LEFTWARD AXIS QRS(T) CONTOUR ABNORMALITY CONSISTENT WITH INFERIOR INFARCT AGE UNDETERMINED ST & T ABNORMALITY, CONSIDER ANTEROLATERAL ISCHEMIA OR LEFT VENTRICULAR STRAIN ABNORMAL ECG Electronically Signed On 06-03-2020 13:43:31 [employer] by José Almanzar
[2020-06-02] MEDS: IV NORMAL SALINE 1000ML BAG 1,000 ML IV SCH (10:46)
[2020-06-02 11:00] VITALS: BP 119/73
--- NOTE | 2020-06-02 11:06 | PDOC2 ---
MAMADOU CARBONE RIVET FLUNKY 06/02/20 1106: CARDIAC CONSULT DATE OF CONSULT Date of Consult DATE: 06/02/20 TIME: 11:00 REASON FOR CONSULT Reason for Consult: NSTEMI REFERRING PHYSICIAN Referring Physician: Dr. Alas SOURCE Source: Chart review, Patient HISTORY OF PRESENT ILLNESS HISTORY OF PRESENT ILLNESS This is an 79 yo male, with a history of triple vessel CAD, who presented secondary to chest pain. Patient reports experiencing some central chest pressure on the day of arrival. No associate dizziness, diaphoresis, or nausea/vomiting. Took nitro x2 and subsequently became dizzy and passed out briefly. EMS was called. Was diaphoretic and pale upon their arrival. They applied topical nitroglycerin and his blood pressure dropped significantly. Was having no further pain at this time and presently denies any chest pain. Patient unsure as to whether this is anxiety or related to his heart. Patient underwent Complex PCI to the LAD and OM1 last week at . Reports compliance with medications including DAPT with ASA, Brilinta. Troponin noted to be mildly elevated upon arrival. Heparin gtt was initiated. PAST MEDICAL HISTORY Past Medical History Cardiovascular: HTN, CAD, HLP Pulmonary: Other (Lung CA) CENTRAL NERVOUS SYSTEM: Other (No pertinent history) GI: Constipation Heme/Onc: No pertinent hx, Cancer (lung CA) Hepatobiliary: No pertinent hx Psych: No pertinent hx Musculoskeletal: Osteoarthritis Rheumatologic: No pertinent hx Infectious disease: No pertinent hx ENT: No pertinent hx Renal/: No pertinent hx Endocrine: Diabetes (2) Dermatology: No pertinent hx PAST SURGICAL HISTORY Past Surgical History Other (right arm fracture repair; vertebroplasty, PCI/JASON to LAD and OM1 ) FAMILY HISTORY Family History: Other (noncontributory ) SOCIAL HISTORY Social History Smoke: Quit ALCOHOL: occasional Drugs: None Lives: Alone CURRENT MEDICATIONS CURRENT MEDICATIONS Current Medications Medications (Trade) Dose Ordered Sig/Dario Route PRN Reason Start Time Stop Time Status Last Admin Dose Admin Lorazepam (Ativan Inj) 0.5 mg 1X ONCE IVP 06/01/20 17:00 06/01/20 17:01 DC 06/01/20 17:02 Sodium Chloride 500 ml @ 500 mls/hr 1X ONCE IV 06/01/20 17:00 06/01/20 17:59 DC 06/01/20 17:02 Heparin Sodium/ Dextrose 250 ml @ 0 mls/hr CONT PRN IV PER PROTOCOL 06/01/20 17:00 06/01/20 17:20 Heparin Sodium (Porcine) (Heparin Sodium) 4,000 unit 1X ONCE IV 06/01/20 17:30 06/01/20 17:31 DC 06/01/20 17:29 Sodium Chloride 1,000 ml @ 100 mls/hr Q10H IV 06/01/20 22:00 06/02/20 10:46 Lorazepam (Ativan Inj) 1 mg PRN Q4HRS PRN IVP MODERATE ANXIETY / AGITATION 06/02/20 00:15 06/02/20 00:28 ALLERGIES ALLERGIES: Coded Allergies: No Known Drug Allergies (Unverified , 06/08/13) ROS Review of System 14 point ROS conducted with pertinent positives noted above in hPI PHYSICAL EXAM PHYSICAL EXAM General: Alert, Oriented X3, Cooperative, No acute distress HEENT: Atraumatic, Mucous membr. moist/pink Lungs: Other (CTA) Heart: Regular rate (SR/ST), Normal S1, Normal S2, Abdomen: Soft, No tenderness Extremities: No cyanosis, No edema Skin: No breakdown, No significant lesion Neuro: Normal speech, Sensation intact Psych/Mental Status: Mental status NL, Mood NL MUSCULOSKELETAL: Osteoarthritic changes both hands VITALS/I&O VITALS/I&O: Vital Signs Date Time Temp Pulse Resp B/P (MAP) Pulse Ox O2 Delivery O2 Flow Rate FiO2 06/02/20 07:00 97.8 101 16 116/66 (83) 97 Room Air 97.8 06/01/20 21:30 2.0 I & O 06/01/20 06/01/20 06/02/20 15:00 23:00 07:00 Intake Total 500 ml 180 ml Output Total 250 ml Balance 500 ml -70 ml LABS Lab: Laboratory Tests Test 06/01/20 16:12 06/01/20 23:40 06/02/20 01:00 White Blood Count 9.2 x10^3/uL (4.0-11.0) Red Blood Count 4.21 x10^6/uL (4.30-5.70) L Hemoglobin 13.5 g/dL (13.0-17.5) Hematocrit 40.5 % (39.0-53.0) Mean Corpuscular Volume 96 fL (79-100) Mean Corpuscular Hemoglobin 32 pg (25-35) Mean Corpuscular Hemoglobin Concent 33 g/dL (31-37) Red Cell Distribution Width 16.4 % (11.5-14.5) H Platelet Count 285 x10^3/uL (140-400) Neutrophils (%) (Auto) 65 % (31-73) Lymphocytes (%) (Auto) 23 % (24-48) L Monocytes (%) (Auto) 10 % (0-9) H Eosinophils (%) (Auto) 2 % (0-3) Basophils (%) (Auto) 1 % (0-3) Neutrophils # (Auto) 6.0 x10^3/uL (1.8-7.7) Lymphocytes # (Auto) 2.1 x10^3/uL (1.0-4.8) Monocytes # (Auto) 0.9 x10^3/uL (0.0-1.1) Eosinophils # (Auto) 0.2 x10^3/uL (0.0-0.7) Basophils # (Auto) 0.1 x10^3/uL (0.0-0.2) Prothrombin Time 13.3 SEC (11.7-14.0) Prothrombin Time INR 1.1 (0.8-1.1) Activated Partial Thromboplast Time 24 SEC (24-38) Sodium Level 140 mmol/L (136-145) Potassium Level 3.6 mmol/L (3.5-5.1) Chloride Level 101 mmol/L (98-107) Carbon Dioxide Level 25 mmol/L (21-32) Anion Gap 14 (6-14) Blood Urea Nitrogen 33 mg/dL (8-26) H Creatinine 1.7 mg/dL (0.7-1.3) H Estimated GFR (Cockcroft-Gault) 38.9 BUN/Creatinine Ratio 19 (6-20) Glucose Level 121 mg/dL (70-99) H Calcium Level 9.9 mg/dL (8.5-10.1) Magnesium Level 2.7 mg/dL (1.8-2.4) H Total Bilirubin 0.7 mg/dL (0.2-1.0) Aspartate Amino Transferase (AST) 31 U/L (15-37) Alanine Aminotransferase (ALT) 40 U/L (16-63) Alkaline Phosphatase 70 U/L (46-116) Troponin I Quantitative 0.295 ng/mL (0.000-0.055) 0.296 ng/mL (0.000-0.055) NG-Lgb-H-Type Natriuretic Peptide 6832 pg/mL (0-449) H Total Protein 7.6 g/dL (6.4-8.2) Albumin 4.1 g/dL (3.4-5.0) Albumin/Globulin Ratio 1.2 (1.0-1.7) Heparin Anti-Xa Act, Unfractionated 0.78 IU/mL (0.30-0.70) H Laboratory Tests 06/01/20 16:12 Laboratory Tests 06/01/20 16:12 ECHOCARDIOGRAM ECHOCARDIOGRAM <Conclusion> The Left Ventricle is mildly dilated. Left ventricle systolic function is moderately impaired. The Ejection Fraction is 30-35%. There is severe hypokinesis in the inferior wall. There is severe hypokinesis in the apical septal wall and apex. There is a small area of increased density near the apex. A thrombus cannot be excluded on the basis of this study. Doppler and Color Flow revealed mild aortic regurgitation. There is no significant aortic valvular stenosis. Doppler and Color-flow revealed mild mitral regurgitation. Doppler and Color Flow revealed mild tricuspid regurgitation. The PA pressure was estimated at 43 mmHg. The ascending aorta is mildly dilated at 3.9 cm. DATE: 05/16/20 [id number] HEART CATH HEART CATH Coronary angiography: Left main is a large-caliber vessel with a distal eccentric 70% stenosis. LAD is a heavily calcified moderate caliber vessel with a proximal 80% stenosis D1 is a small caliber vessel with severe diffuse disease of up to 70% Ramus is a small caliber vessel with a proximal 80% stenosis Left circumflex is a moderate caliber nondominant vessel with a mid 50% stenosis OM1 is a moderate caliber vessel with proximal to mid 70% stenosis LPL 1 is a moderate caliber vessel with mild luminal irregularities RCA is a large caliber dominant vessel with a proximal to mid 100% occlusion RPDA is a moderate caliber vessel seen to fill via robust left to right and right to right collaterals. Conclusion 1. Normal left-sided filling pressures 2. Severe three-vessel coronary artery disease with left main involvement in the setting of a non-ST elevation SC Recommendations 1. Continue asa, statin and heparin gtt 2. Check echo. 3. Monitor renal function and hgb. 4. Await evaluation by Dr. Quinn of CT surgery and family discussion regarding goals of care. DATE: 05/16/20 Right Heart Cath 05/20/20 IMPRESSION: Elevated pulmonary artery pressures with mean PA pressure of 52 mmHg. Significantly elevated pulmonary capillary wedge pressure. Normal cardiac output and cardiac indices. [facility] at 05/21/20 FINAL IMPRESSION: Severe triple-vessel disease, including heavily calcified proximal LAD with 90% disease of the diagonal. 100% occluded RCA. Severe disease involving the proximal portion of the 1st OM with moderate disease of the mid distal left circumflex. Impella-assisted orbital atherectomy and PCI of proximal-mid LAD with a 1.25 mm CSI bur and placement of drug-eluting stents x3 placed in overlapping fashion (Resolute Roy 2.5 x 38 mm, Resolute Roy 2.5 x 38 mm, and Resolute Roy 2.75 x 12 mm), post dilated with a 3.0 mm NC. RECOMMENDATIONS: Routine post cardiac cath care. Monitor both the groins closely for any evidence of bleeding. Aggressive lifestyle risk factor modification after medical therapy. Aspirin and Brilinta for at least 12 months followed by aspirin daily thereafter. Plan for a staged PCI to circumflex/first OM in the near future. Cardiac rehab evaluation prior to discharge. [facility] at 05/26/20 IMPRESSION: Successful percutaneous coronary intervention of 1st obtuse marginal with drug- eluting stents x2 placed in overlapping fashion (Resolute Roy 2.25 x 26 and Resolute Pete 2.5 x 15 mm drug-eluting stent postdilated with a 2.5 NC). Patent left anterior descending artery stents. Moderate mid-left circumflex disease and distal left main disease. Intravascular ultrasound evaluation of distal left main and ostial left anterior descending and ostial left circumflex with calcific plaquing and minimal luminal area measurements as described above in the report. RECOMMENDATIONS: Routine post cardiac care. Continue aspirin and Brilinta for at least 12 months followed by aspirin daily thereafter. Could consider RCA SAMPLE [employer]OOK [employer]KER intervention in the near future if the patient's ejection fraction and the symptoms do not improve despite optimal medical therapy. Continue aggressive lifestyle risk factor modification. ASSESSMENT/PLAN ASSESSMENT/PLAN 1. Chest pain, mixed feature. Possible anxiety component 2. Syncopal episode; following SL nitro x2. BP has been adequate here. No significant arrhythmias on tele 3. NSTEMI; trop highest 0.296. on heparin gtt 4. CAD s/p recent PCI/JASON to mid-distal LAD and OM 1. Also with SAMPLE BOOK MAKER of the RCA and moderate mid-left circumflex disease and distal left main disease. 5. Ischemic cardiomyopathy; LVEF 30-35% 6. Acute on chronic systolic CHF; appear compensated 7. Hypertension; controlled 8. Hyperlipidemia; statin 9. Diabetes, II 10. PEARL on CKD; required milrinone post PCI last week 10. Hx of lung CA Recommendations Repeat troponin this am. If trop < 1.0, can discontinue heparin gtt Resume secondary prevention measures including DAPT with ASA and Brilinta, statin, imdur, and BB Continue BB therapy; convert to long-acting given CMP No ACEi for now with PEARL, low-end BP. Consider addition on an outpatient basis Supportive care Will monitor overnight and anticipate discharge in am if stable and troponin trends downward. SHANNON HUERTAS MD 06/03/20 0641: CARDIAC CONSULT ASSESSMENT/PLAN ASSESSMENT/PLAN Late entry for 06/02/20 Pt. seen and examined. Agree with above CODING ASSISTANT note. Supportive care. Discussed with daughter at bedside. MAMADOU CARBONE APRN Jun 02, 2020 11:06 SHANNON HUERTAS MD Jun 03, 2020 06:41
[2020-06-02] MEDS: TAMSULOSIN 0.4 MG CAP.ER.24H. PO SCH (12:45)
[2020-06-02] MEDS: METOPROLOL TART IMMED RELEASE 50 MG TABLET. PO SCH ×2 (12:45→21:25)
[2020-06-02] MEDS: GLIMEPIRIDE 2 MG TABLET. PO SCH (12:46)
[2020-06-02] MEDS: ISOSORBIDE MONONITRATE ER 30 MG TAB.ER.24H PO SCH (12:46)
[2020-06-02] MEDS: PANTOPRAZOLE 40 MG TABLET.DR. PO SCH (12:46)
[2020-06-02] MEDS: ASPIRIN ENTERIC COATED 81 MG TABLET.DR. PO SCH (12:46)
[2020-06-02] MEDS: GABAPENTIN 300 MG CAPSULE. PO SCH ×2 (12:46→21:25)
[2020-06-02] MEDS ORDERED: TICA90TA PO (12:49)
[2020-06-02] MEDS ORDERED: FURO-68 PO (12:53)
[2020-06-02] MEDS ORDERED: HYDR-2867 PO (12:53)
[2020-06-02] MEDS ORDERED: LIPITOR80 MG PO (12:53)
[2020-06-02 13:39] LABS: CALCIUM 9.1 mg/dL (8.5-10.1); CREATININE 1.6 mg/dL (0.7-1.3); GFR 41.7; POTASSIUM 4.1 mmol/L (3.5-5.1)
--- NOTE | 2020-06-02 13:39 | NUR ---
SS following for discharge planning. SS reviewed pt chart and discussed with pt RN. Pt is from home and is currently on room air. Heparin drip. SS will continue to follow for discharge planning.
[2020-06-02 15:00] VITALS: BP 112/64
[2020-06-02 15:24] LABS: HEMATOCRIT 39.1 % (39.0-53.0); HEMOGLOBIN 12.7 g/dL (13.0-17.5); RED BLOOD COUNT 3.99 x10^6/uL (4.30-5.70); RED CELL DISTRIBUTION WIDTH 16.6 % (11.5-14.5); WHITE BLOOD COUNT 7.3 x10^3/uL (4.0-11.0)
[2020-06-02] MEDS ORDERED: DEXTROSE 50% 25 GM / 50ML DISP.SYRIN. IV PRN (15:30)
[2020-06-02] MEDS: INSULIN LISPRO 300 UNITS/3 ML VIAL. SQ SCH ×2 (17:46→17:47)
[2020-06-02 19:55] VITALS: BP 104/59
[2020-06-02] MEDS ORDERED: ATORVASTATIN CALCIUM 40 MG TABLET. PO SCH ×2 (21:00)
[2020-06-02] MEDS ORDERED: ZOLPIDEM 5 MG TABLET. PO PRN (21:00)
[2020-06-02] MEDS: INSULIN GLARGINE SYRINGE. SQ SCH (21:26)
[2020-06-02 23:40] VITALS: BP 133/59
[2020-06-03 04:10] VITALS: BP 95/48
[2020-06-03 07:00] VITALS: BP 120/65
[2020-06-03] MEDS ORDERED: metFORMIN XR 500 MG TAB.ER.24H PO SCH (08:00)
[2020-06-03] MEDS: INSULIN LISPRO 300 UNITS/3 ML VIAL. SQ SCH ×3 (08:00→12:42)
[2020-06-03] MEDS ORDERED: INSULIN LISPRO 300 UNITS/3 ML VIAL. SQ SCH (08:00)
[2020-06-03] MEDS: PANTOPRAZOLE 40 MG TABLET.DR. PO SCH (08:24)
[2020-06-03] MEDS: TAMSULOSIN 0.4 MG CAP.ER.24H. PO SCH (08:24)
[2020-06-03] MEDS: ASPIRIN ENTERIC COATED 81 MG TABLET.DR. PO SCH (08:24)
[2020-06-03] MEDS: ISOSORBIDE MONONITRATE ER 30 MG TAB.ER.24H PO SCH (08:24)
[2020-06-03] MEDS: GABAPENTIN 300 MG CAPSULE. PO SCH (08:24)
[2020-06-03] MEDS: GLIMEPIRIDE 2 MG TABLET. PO SCH (08:25)
[2020-06-03] MEDS ORDERED: TICAGRELOR 90 MG TABLET. PO SCH (09:00)
[2020-06-03] MEDS ORDERED: METOPROLOL SUCC 24HR ER 100 MG TAB.ER.24H. PO SCH (09:00)
[2020-06-03] MEDS: INSULIN GLARGINE SYRINGE. SQ SCH (09:00)
--- NOTE | 2020-06-03 09:50 | NUR ---
Nursing: patients finger stick blood sugar was 90. Dr. Huffman said to hold long acting insulin at this time.
[2020-06-03 11:01] VITALS: BP 123/64
--- NOTE | 2020-06-03 12:50 | PDOC ---
CARDIO Progress Notes Date and Time Date of Service 06/03/19 Time of Evaluation 1245 Subjective Subjective: No Chest Pain, No shortness of breath, No Palpitations Vitals Vitals Vital Signs Date Time Temp Pulse Resp B/P (MAP) Pulse Ox O2 Delivery O2 Flow Rate FiO2 06/03/20 11:01 98.0 80 18 123/64 (83) 96 Room Air 98.0 Weight Weight [ ] Input and Output Intake and Output Intake and Output 06/03/20 07:00 Intake Total 540 ml Balance 540 ml Intake Oral 540 ml # Voids 4 Laboratory Labs Laboratory Tests Test 06/02/20 14:54 06/02/20 20:44 06/03/20 07:19 06/03/20 11:20 Heparin Anti-Xa Act, Unfractionated 0.42 IU/mL (0.30-0.70) Troponin I Quantitative 0.234 ng/mL (0.000-0.055) Glucose (Fingerstick) 128 mg/dL (70-99) 90 mg/dL (70-99) 159 mg/dL (70-99) Physical Exam HEENT: Neck Supple W Full Motion Chest: Symmetric LUNGS: Clear to Auscultation Heart: RRR Abdomen: Soft N/T Extremities: No Edema Neurology: alert, oriented, follow commands Assessment Assessment 1. Chest pain, mixed feature. Possible anxiety component. Resolved 2. Syncopal episode; following SL nitro x2. BP has been adequate here. No significant arrhythmias on tele 3. NSTEMI; trop peak 0.296. 4. CAD s/p recent PCI/JASON to mid-distal LAD and OM 1. 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 5. Ischemic cardiomyopathy; LVEF 30-35% 6. Acute on chronic systolic CHF; appear compensated 7. Hypertension; low end 8. Hyperlipidemia; statin 9. Diabetes, II 10. PEARL on CKD Recommendations Continue secondary prevention measures including DAPT with ASA and Brilinta, statin, imdur, and BB No ACEi for now with PEARL, low-end BP. Consider addition on an outpatient basis Cardiac rehab referral. Discussed/encouraged with patient and daughter. Patient will determine if he would like to follow up in our office with Dr. Lo or follow up with [facility]. Contact information provided. Stressed importance of compliance with medications and establishing followup. Supportive care Okay to discharge from a CV standpoint. Justicifation of Admission Dx: Justifications for Admission: Justification of Admission Dx: N/A MAMADOU CARBONE APRN Jun 03, 2020 12:50
--- NOTE | 2020-06-03 14:08 | NUR ---
SS following up with discharge planning. SS reviewed pt chart and discussed with pt RN. Pt is currently on room air. Per RN, discharge to home today. Pt declining home healthcare.
[2020-06-03 14:42] LABS: CALCIUM 8.6 mg/dL (8.5-10.1); CREATININE 1.7 mg/dL (0.7-1.3); GFR 38.9; POTASSIUM 3.9 mmol/L (3.5-5.1)
[2020-06-03 15:25] VITALS: BP 109/75
--- NOTE | 2020-06-03 15:55 | PDOC ---
[facility] PROGRESS NOTE Date of Service DOS: DATE: 06/03/20 TIME: 15:50 Chief Complaint Chief Complaint Assessment/Plan Unstable angina Elevated troponins Dehydration PEARL Vasomotor nephropathy Plan: Consultations placed to cardiology Troponins elevated but stable; continue heparin protocol Baseline creatinine appears to be around 1.3; will provide IV hydration Morphine as needed Recent echocardiogram 05/16/2020 with ejection fraction 30-35%, elevated pulmonary artery pressure, mildly dilated ascending aorta FEN - Cardiac diet PPX - Heparin FULL CODE History of Present Illness History of Present Illness This is an 79 yo male, with a history of triple vessel CAD, who presented secondary to chest pain. Patient reports experiencing some central chest pressure on the day of arrival. No associate dizziness, diaphoresis, or nausea/vomiting. Took nitro x2 and subsequently became dizzy and passed out dwight efly. EMS was called. Was diaphoretic and pale upon their arrival. They applied topical nitroglycerin and his blood pressure dropped significantly. Was having no further pain at this time and presently denies any chest pain. Patient unsure as to whether this is anxiety or related to his heart. Patient underwent Complex PCI to the LAD and OM1 last week at . Reports compliance with medications including DAPT with ASA, Brilinta. Troponin noted to be mildly elevated upon arrival. Heparin gtt was initiated. 06/03: Patient seen and evaluated. Will follow cardiology recommendations. Continue secondary prevention measures including DAPT with ASA and Brilinta, statin, imdur, and long-acting metoprolol. No ACEi for now with PEARL, consider addition on an outpatient basis. Cardiac rehab referral. Greater than 30 minutes spent managing discharge this patient Vitals/I&O Vitals/I&O: Vital Signs Date Time Temp Pulse Resp B/P (MAP) Pulse Ox O2 Delivery O2 Flow Rate FiO2 06/03/20 15:25 98.2 90 16 109/75 (86) 96 Room Air 98.2 I & O 06/02/20 06/02/20 06/03/20 15:00 23:00 07:00 Intake Total 0 ml 540 ml Balance 0 ml 540 ml Physical Exam General: Alert, No acute distress Heart: Regular rate Lungs: Clear Abdomen: Normal bowel sounds Extremities: No clubbing, No cyanosis Skin: No rashes, No breakdown Labs Labs: Laboratory Tests Test 06/02/20 20:44 06/03/20 07:19 06/03/20 11:20 06/03/20 14:15 Glucose (Fingerstick) 128 mg/dL (70-99) 90 mg/dL (70-99) 159 mg/dL (70-99) Sodium Level 141 mmol/L (136-145) Potassium Level 3.9 mmol/L (3.5-5.1) Chloride Level 105 mmol/L (98-107) Carbon Dioxide Level 26 mmol/L (21-32) Anion Gap 10 (6-14) Blood Urea Nitrogen 30 mg/dL (8-26) Creatinine 1.7 mg/dL (0.7-1.3) Estimated GFR (Cockcroft-Gault) 38.9 Glucose Level 234 mg/dL (70-99) Calcium Level 8.6 mg/dL (8.5-10.1) Assessment and Plan Assessmemt and Plan Problems Medical Problems: (1) NSTEMI (non-ST elevated myocardial infarction) Status: Acute Comment Review of Relevant I have reviewed the following items raymon (where applicable) has been applied. Medications: Current Medications Medications (Trade) Dose Ordered Sig/Dario Route PRN Reason Start Time Stop Time Status Last Admin Dose Admin Ticagrelor (Brilinta) 90 mg DAILY PO 06/03/20 09:00 06/03/20 08:24 Metoprolol Succinate (Toprol Xl) 100 mg DAILY PO 06/03/20 09:00 06/03/20 08:28 Insulin Human Lispro (HumaLOG) 0-5 UNITS TIDWMEALS SQ 06/02/20 17:00 06/02/20 17:47 Metformin HCl (Glucophage Xr) 500 mg BIDWMEALS PO 06/03/20 08:00 06/03/20 08:24 Atorvastatin Calcium (Lipitor) 80 mg QHS PO 06/02/20 21:00 06/02/20 21:25 Insulin Human Lispro (HumaLOG) 14 units BIDPCLD SQ 06/02/20 17:30 06/03/20 12:42 Insulin Glargine (Lantus Syringe) 80 unit BID SQ 06/02/20 21:00 06/02/20 21:26 Zolpidem Tartrate (Ambien) 5 mg PRN QHS PRN PO INSOMNIA 06/02/20 21:00 06/02/20 21:25 Justifications for Admission Other Justification CHINMAY GARDNER MD Jun 03, 2020 15:55
[2020-06-03] MEDS ORDERED: METO-247 PO (15:59)
--- NOTE | 2020-06-03 16:02 | PDOC3 ---
Discharge Summary Visit Information Date of Admission: Jun 02, 2020 Date of Discharge: Jun 03, 2020 Final Diagnosis Problems Medical Problems: (1) NSTEMI (non-ST elevated myocardial infarction) Status: Acute Brief Hospital Course Allergies Allergies Coded Allergies Type Severity Reaction Last Updated Verified No Known Drug Allergies 06/08/13 No Vital Signs Vital Signs Date Time Temp Pulse Resp B/P (MAP) Pulse Ox O2 Delivery O2 Flow Rate FiO2 06/03/20 15:25 98.2 90 16 109/75 (86) 96 Room Air 98.2 Lab Results Laboratory Tests Test 06/01/20 16:12 06/01/20 23:40 06/02/20 01:00 06/02/20 09:30 White Blood Count 9.2 x10^3/uL (4.0-11.0) 7.3 x10^3/uL (4.0-11.0) Red Blood Count 4.21 x10^6/uL (4.30-5.70) 3.99 x10^6/uL (4.30-5.70) Hemoglobin 13.5 g/dL (13.0-17.5) 12.7 g/dL (13.0-17.5) Hematocrit 40.5 % (39.0-53.0) 39.1 % (39.0-53.0) Mean Corpuscular Volume 96 fL (79-100) 98 fL (79-100) Mean Corpuscular Hemoglobin 32 pg (25-35) 32 pg (25-35) Mean Corpuscular Hemoglobin Concent 33 g/dL (31-37) 32 g/dL (31-37) Red Cell Distribution Width 16.4 % (11.5-14.5) 16.6 % (11.5-14.5) Platelet Count 285 x10^3/uL (140-400) 444 x10^3/uL (140-400) Neutrophils (%) (Auto) 65 % (31-73) Lymphocytes (%) (Auto) 23 % (24-48) Monocytes (%) (Auto) 10 % (0-9) Eosinophils (%) (Auto) 2 % (0-3) Basophils (%) (Auto) 1 % (0-3) Neutrophils # (Auto) 6.0 x10^3/uL (1.8-7.7) Lymphocytes # (Auto) 2.1 x10^3/uL (1.0-4.8) Monocytes # (Auto) 0.9 x10^3/uL (0.0-1.1) Eosinophils # (Auto) 0.2 x10^3/uL (0.0-0.7) Basophils # (Auto) 0.1 x10^3/uL (0.0-0.2) Prothrombin Time 13.3 SEC (11.7-14.0) Prothromb Time International Ratio 1.1 (0.8-1.1) Activated Partial Thromboplast Time 24 SEC (24-38) Sodium Level 140 mmol/L (136-145) 142 mmol/L (136-145) Potassium Level 3.6 mmol/L (3.5-5.1) 4.1 mmol/L (3.5-5.1) Chloride Level 101 mmol/L (98-107) 104 mmol/L (98-107) Carbon Dioxide Level 25 mmol/L (21-32) 28 mmol/L (21-32) Anion Gap 14 (6-14) 10 (6-14) Blood Urea Nitrogen 33 mg/dL (8-26) 32 mg/dL (8-26) Creatinine 1.7 mg/dL (0.7-1.3) 1.6 mg/dL (0.7-1.3) Estimated GFR (Cockcroft-Gault) 38.9 41.7 BUN/Creatinine Ratio 19 (6-20) Glucose Level 121 mg/dL (70-99) 70 mg/dL (70-99) Calcium Level 9.9 mg/dL (8.5-10.1) 9.1 mg/dL (8.5-10.1) Magnesium Level 2.7 mg/dL (1.8-2.4) Total Bilirubin 0.7 mg/dL (0.2-1.0) Aspartate Amino Transf (AST/SGOT) 31 U/L (15-37) Alanine Aminotransferase (ALT/SGPT) 40 U/L (16-63) Alkaline Phosphatase 70 U/L (46-116) Troponin I Quantitative 0.295 ng/mL (0.000-0.055) 0.296 ng/mL (0.000-0.055) 0.252 ng/mL (0.000-0.055) UE-Ipt-O-Type Natriuretic Peptide 6832 pg/mL (0-449) Total Protein 7.6 g/dL (6.4-8.2) Albumin 4.1 g/dL (3.4-5.0) Albumin/Globulin Ratio 1.2 (1.0-1.7) Heparin Anti-Xa Act, Unfractionated 0.78 IU/mL (0.30-0.70) Test 06/02/20 14:54 06/02/20 20:44 06/03/20 07:19 06/03/20 11:20 Heparin Anti-Xa Act, Unfractionated 0.42 IU/mL (0.30-0.70) Troponin I Quantitative 0.234 ng/mL (0.000-0.055) Glucose (Fingerstick) 128 mg/dL (70-99) 90 mg/dL (70-99) 159 mg/dL (70-99) Test 06/03/20 14:15 Sodium Level 141 mmol/L (136-145) Potassium Level 3.9 mmol/L (3.5-5.1) Chloride Level 105 mmol/L (98-107) Carbon Dioxide Level 26 mmol/L (21-32) Anion Gap 10 (6-14) Blood Urea Nitrogen 30 mg/dL (8-26) Creatinine 1.7 mg/dL (0.7-1.3) Estimated GFR (Cockcroft-Gault) 38.9 Glucose Level 234 mg/dL (70-99) Calcium Level 8.6 mg/dL (8.5-10.1) Laboratory Tests Test 06/02/20 20:44 06/03/20 07:19 06/03/20 11:20 06/03/20 14:15 Glucose (Fingerstick) 128 mg/dL (70-99) 90 mg/dL (70-99) 159 mg/dL (70-99) Sodium Level 141 mmol/L (136-145) Potassium Level 3.9 mmol/L (3.5-5.1) Chloride Level 105 mmol/L (98-107) Carbon Dioxide Level 26 mmol/L (21-32) Anion Gap 10 (6-14) Blood Urea Nitrogen 30 mg/dL (8-26) Creatinine 1.7 mg/dL (0.7-1.3) Estimated GFR (Cockcroft-Gault) 38.9 Glucose Level 234 mg/dL (70-99) Calcium Level 8.6 mg/dL (8.5-10.1) Brief Hospital Course Mr. Corral is a 79 old male who presented with unstable angina, elevated troponins. Consultations placed to cardiology. Metoprolol tartrate was changed to Lopressor. He was recommended outpatient ischemic evaluation. Discharge Information Condition at Discharge: Stable Follow Up: Weeks Disposition/Orders: D/C to Home Scheduled Aspirin (Aspirin Ec) 81 Mg Tablet.dr, 81 MG PO DAILYWBKFT for heart disease for 30 Days, #30 Prescribed by: LYNN LAUGHLIN MD on 05/18/20 1112 Last Action: Continued on 06/02/20 114 by ELPIDIO CHAUDHARY Atorvastatin Calcium (Lipitor) 80 Mg Tablet, 80 MG PO HS for FOR CHOLESTEROL, #30 Ref 0 (Reported) Entered as Reported by: ELPIDIO CHAUDHARY on 06/02/20 125 Last Taken: Unknown Dose on 06/01/20 Last Action: Converted on 06/02/20 1706 by ELPIDIO CHAUDHARY Furosemide (Lasix) 40 Mg Tablet, 40 MG PO DAILY for CHF, (Reported) Entered as Reported by: ELPIDIO CHAUDHARY on 06/02/20 1253 Last Taken: Unknown Dose on 06/01/20 Last Action: New Order on 06/02/20 125 by ELPIDIO CHAUDHARY Gabapentin (Gabapentin) 600 Mg Tablet, 300 MG PO BID for NEUROGENIC PAIN, (Reported) Entered as Reported by: MAMADOU PENN on 05/16/20 1752 Last Action: Converted on 06/02/20 1140 by ELPIDIO CHAUDHARY Glimepiride (Glimepiride) 4 Mg Tablet, 2 TAB PO DAILY for blood sugar control, #30 Ref 5 (Reported) Entered as Reported by: JIM VANEGAS on 12/21/18 0900 Last Taken: Unknown Dose on 06/01/20 Last Action: Converted on 06/02/20 1140 by ELPIDIO CHAUDHARY Hydralazine Hcl (Hydralazine Hcl) 10 Mg Tablet, 1 TAB PO TID for HTN, #270 Ref 3 (Reported) Entered as Reported by: ELPIDIO CHAUDHARY on 06/02/20 1253 Last Taken: Unknown Dose on 06/01/20 Last Action: New Order on 06/02/20 1253 by ELPIDIO CHAUDHARY Insulin Aspart (Novolog Flexpen) 100 Unit/1 Ml Insuln.pen, 12 UNIT SQ DAILYWBKFT for DM, (Reported) Entered as Reported by: MAMADOU PENN on 05/16/201751 Last Action: Converted on 06/02/201705 by ELPIDIO CHAUDHARY Insulin Aspart (Novolog Flexpen) 100 Unit/1 Ml Insuln.pen, 14 UNIT SQ BIDPCLD for DM, (Reported) Entered as Reported by: MAMADOU PENN on 05/16/201751 Last Action: Converted on 06/02/201705 by ELPIDIO CHAUDHARY Insulin Glargine,Hum.rec.anlog (Toujeo Solostar) 300 Unit/1 Ml Insuln.pen, 80 UNIT SQ BID for DM, (Reported) Entered as Reported by: MAMADOU PENN on 05/16/201751 Last Action: Converted on 06/02/201705 by ELPIDIO CHAUDHARY Isosorbide Mononitrate (Isosorbide Mononitrate Er) 30 Mg Tab.er.24h, 30 MG PO DAILY for chest pain for 30 Days, #30 Prescribed by: LYNN LAUGHLIN MD on 05/18/205 Last Action: Continued on 06/02/201140 by ELPIDIO CHAUDHARY Metformin Hcl (Metformin Hcl Er) 500 Mg Tab.er.24h, 500 MG PO BIDWMEALS for blood sugar control, (Reported) Entered as Reported by: JIM VANEGAS on 12/21/18 0900 Last Taken: Unknown Dose on 06/01/20 Last Action: Continued on 06/02/201705 by ELPIDIO CHAUDHARY Metoprolol Succinate (Metoprolol Succinate ( Xl )) 100 Mg Tab.er.24h, 100 MG PO DAILY for Heart Failure, #30 Ref 1 Prescribed by: CHINMAY GARDNER MD on 06/03/20 1559 Pantoprazole Sodium (Pantoprazole Sodium ) 40 Mg Tablet.dr, 40 MG PO DAILYAC for reflux for 30 Days, #30 Prescribed by: LYNN LAUGHLIN MD on 05/18/20 1112 Last Action: Continued on 06/02/20 114 by ELPIDIO CHAUDHARY Tamsulosin Hcl (Flomax) 0.4 Mg Cap.er.24h, 1 CAP PO DAILY for BPH, #30 Ref 11 (Reported) Entered as Reported by: JIM VANEGAS on 12/21/18 0900 Last Action: Continued on 06/02/20 1140 by ELPIDIO CHAUDHARY Ticagrelor (Brilinta) 90 Mg Tablet, 90 MG PO DAILY for anti coagulation, (Reported) Entered as Reported by: ELPIDIO CHAUDHARY on 06/02/20 1249 Last Taken: Unknown Dose on 06/01/20 Last Action: Continued on 06/02/20 1302 by MAMADOU CARBONE APRN Discontinued Medications Metoprolol Tartrate (Metoprolol Tartrate) 50 Mg Tablet, 50 MG PO BID for htn, (Reported) Entered as Reported by: REYNOLD GRAVES on 10/10/15 0906 Last Taken: Unknown Dose on 06/01/20 Last Action: Continued on 06/02/20 1140 by ELPIDIO CHAUDHARY Justicifation of Admission Dx: Justifications for Admission: Justification of Admission Dx: N/A CHINMAY GARDNER MD Jun 03, 2020 16:02
--- NOTE | 2020-06-03 17:09 | NUR ---
Discharge: Teaching verbal and written. Reviewed medications, follow up, cardiac diet, CHF, ect. Patient and daughter verbalized understanding. 1 prescription sent to pharmacy. All belongings with patient. patient assisted off of unit via wheelchair accompanied by by daughter and nurse.
== END 2020-06-03 16:55 | disposition home or self-care (01) | DRG 280 ==
LOC: ER 16:03 → ED HOLD 17:06 → 2 SOUTH 22:24
PROVIDERS: ADMIT Internal Medicine; ATTEND Internal Medicine
DX: I22.2 Subsequent non-ST elevation (NSTEMI) myocardial infarction (principal); I50.23 Acute on chronic systolic (congestive) heart failure; N17.0 Acute kidney failure with tubular necrosis; I13.0 Hypertensive heart and chronic kidney disease with heart failure and stage 1 through stage 4 chronic kidney disease, or unspecified chronic kidney disease; I21.4 Non-ST elevation (NSTEMI) myocardial infarction; I25.110 Atherosclerotic heart disease of native coronary artery with unstable angina pectoris; E11.22 Type 2 diabetes mellitus with diabetic chronic kidney disease; E78.5 Hyperlipidemia, unspecified; E86.0 Dehydration; I25.2 Old myocardial infarction; I25.5 Ischemic cardiomyopathy; N18.9 Chronic kidney disease, unspecified; N40.0 Benign prostatic hyperplasia without lower urinary tract symptoms; Z82.49 Family history of ischemic heart disease and other diseases of the circulatory system; Z85.118 Personal history of other malignant neoplasm of bronchus and lung; Z95.5 Presence of coronary angioplasty implant and graft; M19.90 Unspecified osteoarthritis, unspecified site
CPT/HCPCS: 36415; 71045; 80048; 80053; 82962; 83735; 83880; 84484; 85025; 85027; 85520; 85610; 85730; 93005; 96365; 96366; 96375; 96376; J1644; J1815; J2060; J7030; J7040; 99285-25; G0378

== ENCOUNTER 2020-07-21 19:07 | Emergency (ER) | payer MEDICARE, OTHER ==
[~2020-07-21] VITALS: Ht 175.3 cm; Wt 83.1 kg
[~2020-07-21 19:07] MED LIST changes: +FURO-68 PO; +HYDR-2867 PO; +LIPITOR80 MG PO; +METO-247 PO; +TICA90TA PO
[2020-07-21 19:50] LABS: BASO # 0.1 x10^3/uL (0.0-0.2); BASO % 1 % (0-3); EOS % 0 % (0-3); HEMATOCRIT 39.6 % (39.0-53.0); HEMOGLOBIN 12.9 g/dL (13.0-17.5); LYMPH # 1.4 x10^3/uL (1.0-4.8); LYMPH % 14 % (24-48); MEAN CORPUSCULAR HEMOGLOBIN 31 pg (25-35); MEAN CORPUSCULAR HGB CONC 33 g/dL (31-37); MEAN CORPUSCULAR VOLUME 96 fL (79-100); MONO # 0.7 x10^3/uL (0.0-1.1); MONO % 7 % (0-9); NEUT # 7.6 x10^3/uL (1.8-7.7); NEUT % 78 % (31-73); PLATELET COUNT 313 x10^3/uL (140-400); RED BLOOD COUNT 4.11 x10^6/uL (4.30-5.70); WHITE BLOOD COUNT 9.9 x10^3/uL (4.0-11.0)
[2020-07-21 19:59] LABS: PROTHROMBIN TIME PATIENT 15.1 SEC (11.7-14.0)
[2020-07-21 20:07] LABS: ALBUMIN 3.7 g/dL (3.4-5.0); ALBUMIN/GLOBULIN RATIO 1.2 (1.0-1.7); CALCIUM 8.8 mg/dL (8.5-10.1); CREATININE 1.3 mg/dL (0.7-1.3); GFR 52.9; POTASSIUM 3.2 mmol/L (3.5-5.1); TOTAL BILIRUBIN 0.4 mg/dL (0.2-1.0); TOTAL PROTEIN 6.9 g/dL (6.4-8.2)
[2020-07-21] MEDS ORDERED: IV NORMAL SALINE 1000ML BAG 1,000 ML IV ONE (20:15)
[2020-07-21] MEDS ORDERED: IV DEXTROSE 5% 500 ML IV ONE (20:15)
[2020-07-21] MEDS ORDERED: ONDANSETRON PF 4 MG/2 ML VIAL. IVP ONE (20:15)
--- NOTE | 2020-07-21 20:21 | PHYS DOC ---
Past Medical History Past Medical History: CAD, Diabetes-Type II, Hypertension Additional Past Medical Histor: BPH, Lung cancer with radiation. Past Surgical History: Other Additional Past Surgical Histo: shoulder and leg, heart stents x 2 Smoking Status: Former Smoker Alcohol Use: None Drug Use: None General Adult EDM: Chief Complaint: CHEST PAIN-CARDIAC NATURE HPI: HPI: Patient is a 80 year old male who presents with chest pain that has been going on since April. He states that in April he had 5 stents placed, and he has had a pain in his epigastric region that has been getting worse since that time. Yesterday and today it has been significantly worse, he describes this pain as burning and radiating into his left chest, he states he took an Shav[place]- [place] and this normally helps but it did not help today. He states the pain is a 6 out of 10. He states he also is very nauseous but he has not vomited. He has had decreased appetite since April, and has also been having some insomnia because he feels nauseous when he lays flat. He states he was at on July 17 and he was evaluated for possible GI bleed, he has had 2 dark stools before that time, no dark stools today, and he is supposed to follow-up with GI. Review of Systems: Review of Systems: Constitutional: Denies fever or chills. [] Eyes: Denies change in visual acuity. [] HENT: Denies nasal congestion or sore throat. [] Respiratory: Denies cough or shortness of breath. [] Cardiovascular: positive chest pain or edema. [] GI: positive abdominal pain, positive nausea, no vomiting, bloody stools or diarrhea. [] : Denies dysuria. [] Musculoskeletal: Denies back pain or joint pain. [] Integument: Denies rash. [] Neurologic: Denies headache, focal weakness or sensory changes. [] Endocrine: Denies polyuria or polydipsia. [] Lymphatic: Denies swollen glands. [] Psychiatric: Denies depression or anxiety. [] Heart Score: HEART Score for Chest Pain: HEART Score for Chest Pain Response (Comments) Value History Moderately Suspicious 1 ECG Nonspecific Repolarizatio 1 Age > 65 2 Risk Factors >3 Risk Factors or Hx CAD 2 Total 6 Risk Factors: Risk Factors: DM, Current or recent (<one month) smoker, HTN, HLP, family history of CAD, obesity. Risk Scores: Score 0 - 3: 2.5% MACE over next 6 weeks - Discharge Home Score 4 - 6: 20.3% MACE over next 6 weeks - Admit for Clinical Observation Score 7 - 10: 72.7% MACE over next 6 weeks - Early Invasive Strategies Current Medications: Current Medications Medications (Trade) Dose Ordered Sig/Dario Start Time Stop Time Status Last Admin Dose Admin Dextrose 500 ml @ 500 mls/hr 1X ONCE 07/21/20 20:15 07/21/20 21:14 UNV Ondansetron HCl (Zofran) 4 mg 1X ONCE 07/21/20 20:15 07/21/20 20:16 UNV Sodium Chloride 1,000 ml @ 1,000 mls/hr 1X ONCE 07/21/20 20:15 07/21/20 21:14 UNV Allergies: Allergies: Allergies Coded Allergies Type Severity Reaction Last Updated Verified No Known Drug Allergies 06/08/13 No Physical Exam: PE: Constitutional: Well developed, well nourished, no acute distress, non-toxic appearance. [] HENT: Normocephalic, atraumatic, bilateral external ears normal, oropharynx moist, no oral exudates, nose normal. [] Eyes: PERRLA, EOMI, conjunctiva normal, no discharge. [] Neck: Normal range of motion, no tenderness, supple, no stridor. [] Cardiovascular:Heart rate regular rhythm, no murmur [] Lungs & Thorax: Bilateral breath sounds clear to auscultation [] Abdomen: Bowel sounds normal, soft, no tenderness, no masses, no pulsatile masses. [] Skin: Warm, dry, no erythema, no rash. [] Back: No tenderness, no CVA tenderness. [] Extremities: No tenderness, no cyanosis, no clubbing, ROM intact, no edema. [] Neurologic: Alert and oriented X 3, normal motor function, normal sensory function, no focal deficits noted. [] Psychologic: Affect normal, judgement normal, mood normal. [] Current Patient Data: Labs: Laboratory Tests Test 07/21/20 19:40 White Blood Count 9.9 x10^3/uL (4.0-11.0) Red Blood Count 4.11 x10^6/uL (4.30-5.70) L Hemoglobin 12.9 g/dL (13.0-17.5) L Hematocrit 39.6 % (39.0-53.0) Mean Corpuscular Volume 96 fL (79-100) Mean Corpuscular Hemoglobin 31 pg (25-35) Mean Corpuscular Hemoglobin Concent 33 g/dL (31-37) Red Cell Distribution Width 16.0 % (11.5-14.5) H Platelet Count 313 x10^3/uL (140-400) Neutrophils (%) (Auto) 78 % (31-73) H Lymphocytes (%) (Auto) 14 % (24-48) L Monocytes (%) (Auto) 7 % (0-9) Eosinophils (%) (Auto) 0 % (0-3) Basophils (%) (Auto) 1 % (0-3) Neutrophils # (Auto) 7.6 x10^3/uL (1.8-7.7) Lymphocytes # (Auto) 1.4 x10^3/uL (1.0-4.8) Monocytes # (Auto) 0.7 x10^3/uL (0.0-1.1) Eosinophils # (Auto) 0.0 x10^3/uL (0.0-0.7) Basophils # (Auto) 0.1 x10^3/uL (0.0-0.2) Prothrombin Time 15.1 SEC (11.7-14.0) H Prothrombin Time INR 1.2 (0.8-1.1) H Activated Partial Thromboplast Time 34 SEC (24-38) Sodium Level 142 mmol/L (136-145) Potassium Level 3.2 mmol/L (3.5-5.1) L Chloride Level 104 mmol/L (98-107) Carbon Dioxide Level 29 mmol/L (21-32) Anion Gap 9 (6-14) Blood Urea Nitrogen 20 mg/dL (8-26) Creatinine 1.3 mg/dL (0.7-1.3) Estimated GFR (Cockcroft-Gault) 52.9 BUN/Creatinine Ratio 15 (6-20) Glucose Level 37 mg/dL (70-99) *L Calcium Level 8.8 mg/dL (8.5-10.1) Total Bilirubin 0.4 mg/dL (0.2-1.0) Aspartate Amino Transferase (AST) 25 U/L (15-37) Alanine Aminotransferase (ALT) 25 U/L (16-63) Alkaline Phosphatase 50 U/L (46-116) Total Protein 6.9 g/dL (6.4-8.2) Albumin 3.7 g/dL (3.4-5.0) Albumin/Globulin Ratio 1.2 (1.0-1.7) Laboratory Tests 07/21/20 19:40 Laboratory Tests 07/21/20 19:40 Vital Signs: Vital Signs Date Time Temp Pulse Resp B/P (MAP) Pulse Ox O2 Delivery O2 Flow Rate FiO2 07/21/20 19:17 98.4 69 22 151/66 (94) 97 Room Air 98.4 EKG: EKG: [] Radiology/Procedures: Radiology/Procedures: [] Impression: HISTORY: Trauma. FINDINGS: Heart size normal. Aortic arch calcified plaque. Mild elevation right diaphragm or diaphragmatic eventration. Thin linear scarring or discoid atelectasis at the lingula. No pneumothorax, pulmonary opacities or pleural effusions. Bones are unremarkable. IMPRESSION: No acute process evident. Electronically signed by: Justyn Eddy MD (07/21/2020 8:21 PM) [facility] [place] Course & Med Decision Making: Course & Med Decision Making Pertinent Labs and Imaging studies reviewed. (See chart for details) [] Patient was evaluated for chief complaint. Work-up consisted of laboratory analysis radiologic imaging and EKG. Results reviewed and discussed with patie nt and daughter. Daughter states patient was evaluated at referred to GI-for colonoscopy EGD but cannot be scheduled for approximately 3 months. Labs obtained and reviewed no acute abnormalities. Patient safe for discharge. Will refer patient to GI. Tobias Disclaimer: Tobias Disclaimer: This electronic medical record was generated, in whole or in part, using a voice recognition dictation system. Departure Departure Impression: Primary Impression: Atypical chest pain Additional Impressions: GERD (gastroesophageal reflux disease) Abdominal pain Disposition: 01 DC HOME SELF CARE/HOMELESS Condition: STABLE Referrals: WILLIE ALARCON MD (PCP) JAREK STAFFORD MD Patient Instructions: Chest Pain (Nonspecific), Hypoglycemia (Low Blood Sugar) SHAY CASSIDY DO Jul 21, 2020 20:21
--- NOTE | 2020-07-21 20:23 | RAD ---
AP chest x-ray HISTORY: Trauma. FINDINGS: Heart size normal. Aortic arch calcified plaque. Mild elevation right diaphragm or diaphrag matic eventration. Thin linear scarring or discoid atelectasis at the lingula. No pneumothorax, pulmo nary opacities or pleural effusions. Bones are unremarkable. IMPRESSION: No acute process evident. Electronically signed by: Justyn Eddy MD (07/21/2020 8:21 PM) [facility]
[2020-07-21 23:00] VITALS: BP 118/59
[2020-07-21] MEDS ORDERED: ONDA4TAB7 PO (23:20)
== END 2020-07-21 23:19 | disposition home or self-care (01) ==
LOC: ER 19:07
DX: K21.9 Gastro-esophageal reflux disease without esophagitis (principal); R07.89 Other chest pain; R10.9 Unspecified abdominal pain; R11.0 Nausea; E11.9 Type 2 diabetes mellitus without complications; I11.9 Hypertensive heart disease without heart failure; Z98.890 Other specified postprocedural states; Z87.891 Personal history of nicotine dependence; Z85.9 Personal history of malignant neoplasm, unspecified
CPT/HCPCS: 36415; 71045; 80053; 82962; 83880; 84484; 85025; 85610; 85730; 96361; 96374; 99285; J2405; J7060